=== PATIENT | male | born 1930 | race Caucasian/White ===

== ENCOUNTER 2016-09-29 12:02 | Day surgery (SDC) | payer OTHER ==
[2016-09-29] MEDS ORDERED: BACITRACIN IRRIGATION/NS 50,000 UNITS/1,000 ML BTL IRR ONE (12:06)
[2016-09-29] MEDS ORDERED: NS 1,000 ML IV ONE (12:06)
[2016-09-29] MEDS ORDERED: diphenhydrAMINE 25 MG CAP PO ONE (12:06)
[2016-09-29] MEDS ORDERED: ceFAZolin 2 GM/DEXTROSE 100 ML IV ONE (12:06)
[2016-09-29] MEDS ORDERED: DIAZEPAM 5 MG TAB PO ONE (12:06)
--- NOTE | 2016-09-29 12:25 | CPEKG ---
Heart Rate: 60 RR Interval: 1000 P-R Interval: 240 QRSD Interval: 148 QT Interval: 460 QTC Interval: 460 P [place]: 0 QRS [place]: 85 T Wave [place]: -31 EKG Severity - ABNORMAL ECG - EKG Impression: A paced V sensed EKG Impression: RBBB Electronically Signed By: Khang Joseph 29-Sep-2016 13:40:45
[2016-09-29] MEDS ORDERED: fentaNYL 100 MCG/2 ML INJ ONE (12:38)
[2016-09-29] MEDS ORDERED: BUPIVACAINE 0.5% 30 ML SDV ONE (12:38)
[2016-09-29] MEDS ORDERED: LIDOCAINE 1% 30 ML SDV ONE (12:38)
[2016-09-29] MEDS ORDERED: LIDO/EPI 1% **for epidural** 30 ML SDV ONE (12:38)
[2016-09-29] MEDS ORDERED: MIDAZOLAM 2 MG/2 ML VIAL ONE (12:38)
[2016-09-29 12:56] LABS: INR 1.05 (0.83-1.16); PROTIME(PATIENT) 13.6 SEC (12.0-15.0)
[2016-09-29 13:38] LABS: ANION GAP 17 mEq/L (8-16); CALCIUM 9.6 mg/dL (8.5-10.4); CARBON DIOXIDE 21 mEq/l (22-31); CHLORIDE 96 mEq/L (97-110); CREATININE 7.3 mg/dL (0.7-1.3); GLOMERULAR FILTRATION RATE 7; GLUCOSE 80 mg/dL (70-100); POTASSIUM 5.6 mEq/L (3.5-5.2); SODIUM 134 mEq/L (134-144)
--- NOTE | 2016-09-29 14:36 | EPPROC ---
Electrophysiology Procedure Note: PROCEDURE: Dual-chamber pacemaker replacement. DATE OF PROCEDURE: 09/29/2016 COMPLICATIONS: None BILLET WORKER: Pino Chavis MD EXPLANTED DEVICE: Biotronik Ryan HERRERA, serial # [id number]. IMPLANTED DEVICE: Etsarah Robert CHAPPELL, serial # [id number]. LEADS: The right atrial lead is a [employer] 1882TC/46, serial # [id number]. The right ventricular lead is a Biotronik Setrox S 53, serial # [id number]. INDICATION AND APPROPRIATE USE CRITERIA: The device is being replaced for BEBETO alerts. 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 PROCEDURE IN DETAIL: After informed consent was obtained and n.p.o. status was confirmed, the region of the left subclavicular fossa was cleaned, prepped and draped in a sterile fashion. Approximately 20 mL of 1% lidocaine was utilized for local anesthesia. The skin was sharply incised with a #10 blade. Electrocautery and local pressure were used for hemostasis. Sharp and blunt dissection was used to access the pacemaker pocket overlying the pectoralis major fascia. The pocket was thoroughly flushed and checked for bleeding. Hemostasis was established and the old device was removed from the pocket. The atrial and ventricular lead set screws were loosened. The atrial lead serial number was checked and placed in the upper pole lead housing of the new pulse generator and set screw firmly applied. The procedure was repeated for the RV lead. Ventricular lead threshold was tested and found to be 0.8 V at 0.4 ms width. R-wave amplitude was measured at 7.1 mV. Lead impedance was 456 Ohms. Atrial lead threshold was tested at 0.6 V at 0.4 ms width. P-wave amplitude was 4.9 mV, lead impedance was 354 Ohms. The device was placed in the pocket and sutured in place with #0 Ethibond. The skin was closed with a 3-layered 3-0 Vicryl, 2-0 Vicryl and 4-0 Monocryl repair with excellent wound edge opposition and hemostasis documented. The patient returned to the post cath recovery unit in good and stable condition where a stat postoperative EKG will be obtained. FINAL IMPRESSION: Successful elective pulse generator replacement without immediate complication.
== END 2016-09-29 17:13 | disposition home or self-care (01) ==
LOC: FCATH 12:02
PROVIDERS: ATTEND Internal Medicine Cardiovascular Disease
PROC: 0JH636Z Insertion of Pacemaker, Dual Chamber into Chest Subcutaneous Tissue and Fascia, Percutaneous Approach (ICD-10-PCS; principal; 2016-09-29)
PROC: 0JPT3PZ Removal of Cardiac Rhythm Related Device from Trunk Subcutaneous Tissue and Fascia, Percutaneous Approach (ICD-10-PCS; principal; 2016-09-29)
DX: Z45.010 Encounter for checking and testing of cardiac pacemaker pulse generator [battery] (principal); I44.1 Atrioventricular block, second degree; I25.10 Atherosclerotic heart disease of native coronary artery without angina pectoris; I12.0 Hypertensive chronic kidney disease with stage 5 chronic kidney disease or end stage renal disease; N18.6 End stage renal disease
CPT/HCPCS: C1785; J0690; J2250; J3010

== ENCOUNTER 2016-09-30 13:14 | Emergency (ER) | payer OTHER ==
[2016-09-30] MEDS ORDERED: NS 1,000 ML IV ONE (13:23)
[2016-09-30 13:26] VITALS: RESP 16; O2SAT 98
[2016-09-30 13:30] LABS: % IMMATURE GRANULYOCYTES 0.4 % (0.0-1.1); ABSOLUTE IMMATURE GRANULOCYTES 0.02 10^3/uL (0.00-0.10); ADD DIFF? NO; ADD MORPH? NO; ADD SCAN? NO; ATYPICAL LYMPHOCYTE FLAG 10 (0-99); FRAGMENT RBC FLAG 0 (0-99); HEMOGLOBIN 12.2 g/dL (13.7-17.5); LEFT SHIFT FLG 0 (0-99); LIPEMIA HEMOLYSIS FLAG 90 (0-99); MEAN CELL HEMOGLOBIN 34.5 pg (27.9-34.1); MEAN CELL HEMOGLOBIN CONCENTR. 34.9 g/dL (32.4-36.7); MEAN CELL VOLUME 98.9 fL (81.5-99.8); MEAN PLATELET VOLUME 9.5 fL (8.7-11.7); PLATELET CLUMPS FLAG 10 (0-99); PLATELET COUNT 277 10^3/uL (150-400); RED BLOOD CELL COUNT 3.54 10^6/uL (4.40-6.38); RED CELL DISTRIBUTION WIDTH 13.9 % (11.5-15.2)
--- NOTE | 2016-09-30 13:32 | CPEKG ---
Heart Rate: 127 RR Interval: 472 QRSD Interval: 238 QT Interval: 368 QTC Interval: 536 P [place]: 0 QRS [place]: 89 T Wave [place]: -41 EKG Severity - ABNORMAL ECG - EKG Impression: A-V DUAL-PACED COMPLEXES W/ SOME INHIBITION Electronically Signed By: Hanane Barlow 30-Sep-2016 21:12:02
[2016-09-30 13:39] LABS: INR 1.07 (0.83-1.16); PROTIME(PATIENT) 13.8 SEC (12.0-15.0)
[2016-09-30 13:49] LABS: ANION GAP 15 mEq/L (8-16); CALCIUM 9.1 mg/dL (8.5-10.4); CARBON DIOXIDE 26 mEq/l (22-31); CHLORIDE 95 mEq/L (97-110); CREATININE 3.9 mg/dL (0.7-1.3); GLOMERULAR FILTRATION RATE 15; GLUCOSE 109 mg/dL (70-100); POTASSIUM 4.6 mEq/L (3.5-5.2); SODIUM 136 mEq/L (134-144)
[2016-09-30 14:00] LABS: TROPONIN I < 0.012 ng/mL (0-0.034)
--- NOTE | 2016-09-30 14:13 | EDPHY ---
H & P Time Seen by Provider: 09/30/16 13:22 HPI/ROS: HPI Possible near syncope. Low blood pressure after dialysis. 86-year-old male by ambulance from dialysis center. He has a history of end- stage renal disease. He also has a history of a recently placed pacemaker by his table tender Dr. Pino Chavis. Patient was finishing dialysis. He sat up. His blood pressure became low we do not have a measure from EMS. He attempted to get out of the dialysis chair and got caught on the dialysis tubing and stated that he tripped and fell forward. He states that although he was lightheaded he did not lose consciousness. He now has no complaints. He denies any associated chest pain, shortness of breath or palpitations. No focal loss of sensation or weakness. No other complaints. He is asking for discharge. ROS: Constitutional: No fever, no chills. As above. Eyes: No discharge. No changes in vision. ENT: No sore throat. No nasal congestion or rhinorrhea. Respiratory: No cough. No shortness of breath. Cardiac: No chest pain, no palpitations. Gastrointestinal: No abdominal pain, no vomiting, no diarrhea. Genitourinary: No hematuria. No dysuria or increased frequency with urination. Musculoskeletal: No back pain. No neck pain. No myalgias or arthralgias. Skin: No rashes. Neurological: No headache. No focal weakness or altered sensation. Past medical history: End-stage renal disease, dialysis Monday and Monday, pacemaker as above, left and right knee replacements, RFA fistula, hypertension. Social history: Lives with his . Here with his . Nonsmoker. No alcohol. Physical Exam: General Appearance: Alert, no distress. This patient is responding to questions appropriately and in full sentences. This patient appears well- hydrated and well-nourished. Eyes: Pupils equal and round no pallor or injection. No lid edema, erythema or injection. Respiratory: There are no retractions, lungs are clear to auscultation with good air movement bilaterally. Left upper chest wall pacemaker insertion site without evidence of infection, bleeding or other abnormalities. Cardiovascular: Regular rate and rhythm. No murmur appreciated. Gastrointestinal: Abdomen is soft and nontender, no masses, bowel sounds normal. No focal tenderness at McBurney's point. No Edmonds sign. Neurological: Motor sensory function is grossly intact. Cranial nerves are normal. Gait is normal. Skin: Warm and dry, no rashes. Musculoskeletal: Neck is supple and nontender. Extremities are symmetrical. All joints range without pain or impingement. Psychiatric: No agitation. No depression. Database: EKG: EKG time is 1:30 p.m.; EKG shows a shows a AV dual paced rhythm with appropriate discordance, with ventricular rates in the 70s. Interpreted by me. Imaging: Procedures: Emergency department course: IV placed from triage. Patient placed on a gambling monitor. EKG performed. Vital signs have been reviewed, patient is moderately hypertensive. Heart rate in triage 98. No tachypnea. On the monitor he has showed a paced rhythm with rate in the 70s. He denies any complaints at this time. He denies any associated palpitations, shortness of breath or chest discomfort with his event at dialysis. He reports that he has had these episodes in the past associated with dialysis and they have been worse with loss of consciousness/syncope. 2:15 p.m., his lab work has been reviewed and is reassuring. He is up and ambulatory. He has no lightheadedness or other complaints. He feels comfortable going home and is requesting discharge. I feel this is reasonable. Follow-up and return to emergency department precautions were thoroughly reviewed with him and his . All of their questions were answered. He was discharged from the emergency department in good condition. Differential Diagnosis: The differential diagnosis on this patient includes but is not limited to mechanical fall verses near syncope verses transient hypotension associated with dialysis. CVA, acute coronary syndrome, acute arrhythmia, pulmonary embolism, electrolyte abnormality, significant anemia unlikely. This represents a partial list of diagnoses considered. These considerations are based on history, physical exam, past history, reassessment and diagnostic testing. Smoking Status: Never smoked Constitutional: Initial Vital Signs Temperature (C) 36.5 C 09/30/16 13:14 Heart Rate 98 09/30/16 13:14 Respiratory Rate 16 09/30/16 13:14 Blood Pressure 140/75 H 09/30/16 13:14 O2 Sat (%) 98 09/30/16 13:14 O2 Delivery Mode Room Air Allergies/Adverse Reactions: No Allergies [NKA] Allergy (Verified 05/10/16 17:30) Home Medications: Medication Instructions Recorded Aspirin [Aspirin 81mg (OTC)] 81 mg PO DAILY 11/29/12 Levothyroxine [Synthroid 50 mcg 50 mcg PO DAILY 11/29/12 (RX)] Lisinopril [Zestril 40 mg (RX)] 40 mg PO BID 11/29/12 Polyethylene Glycol 3350 [Miralax 17 gm PO DAILY 11/29/12 17 gm (OTC)] Sevelamer Carbonate [Renvela] 3.2 gm PO TID 11/29/12 amLODIPine BESYLATE [Norvasc 5 mg 10 mg PO DAILY 11/29/12 (RX)] Atorvastatin Calcium 40 mg PO DAILY 06/09/16 Carvedilol 25 mg PO BID 06/09/16 Sensipar 30 mg PO 06/09/16 Zetia 10 mg PO DAILY 06/09/16 Dialyvite Tablet 1 tab PO DAILY 09/29/16 [place] 3 Fish Oil Softgel 1,380 mg PO BID 09/29/16 Vitamin D3 2,000 iunits PO BID 09/29/16 Medical Decision Making - Data Points Laboratory Results: Laboratory Results 09/30/16 13:10 09/30/16 13:10 09/30/16 13:10 WBC 4.47 10^3/uL (3.80-9.50) RBC 3.54 L 10^6/uL (4.40-6.38) Hgb 12.2 L g/dL (13.7-17.5) Hct 35.0 L % (40.0-51.0) MCV 98.9 fL (81.5-99.8) MCH 34.5 H pg (27.9-34.1) MCHC 34.9 g/dL (32.4-36.7) RDW 13.9 % (11.5-15.2) Plt Count 277 10^3/uL (150-400) MPV 9.5 fL (8.7-11.7) Neut % (Auto) 68.8 % (39.3-74.2) Lymph % (Auto) 11.6 L % (15.0-45.0) Lamb % (Auto) 14.5 H % (4.5-13.0) Eos % (Auto) 3.8 % (0.6-7.6) Baso % (Auto) 0.9 % (0.3-1.7) Nucleat RBC Rel Count 0.0 % (0.0-0.2) Absolute Neuts (auto) 3.07 10^3/uL (1.70-6.50) Absolute Lymphs (auto) 0.52 L 10^3/uL (1.00-3.00) Absolute Monos (auto) 0.65 10^3/uL (0.30-0.80) Absolute Eos (auto) 0.17 10^3/uL (0.03-0.40) Absolute Basos (auto) 0.04 10^3/uL (0.02-0.10) Absolute Nucleated RBC 0.00 10^3/uL (0-0.01) Immature Gran % 0.4 % (0.0-1.1) Immature Gran # 0.02 10^3/uL (0.00-0.10) PT 13.8 SEC (12.0-15.0) INR 1.07 (0.83-1.16) APTT 29.0 SEC (23.0-38.0) Sodium 136 mEq/L (134-144) Potassium 4.6 mEq/L (3.5-5.2) Chloride 95 L mEq/L (97-110) Carbon Dioxide 26 mEq/l (22-31) Anion Gap 15 mEq/L (8-16) BUN 19 mg/dL (7-23) Creatinine 3.9 H mg/dL (0.7-1.3) Estimated GFR 15 Glucose 109 H mg/dL (70-100) Calcium 9.1 mg/dL (8.5-10.4) Troponin I < 0.012 ng/mL (0-0.034) Medications Given: Discontinued Medications Sodium Chloride (Ns) 1,000 mls @ 0 mls/hr IV ONCE ONE PRN Reason: Wide Open Stop: 09/30/16 13:24 Last Admin: 09/30/16 14:00 Dose: Not Given Departure - Departure Disposition: Home, Routine, Self-Care Clinical Impression: Transient hypotension, Lightheaded, Status post dialysis Condition: Good Instructions: End Stage Kidney Disease (ED), Lightheadedness (ED) Additional Instructions: Read and follow provided instructions. Follow-up with primary care physician or table tender, Dr. Pino Chavis, on Monday for re-evaluation without fail Take your medication as prescribed only. No strenuous physical activity. Keep yourself hydrated. Return to the emergency department for lightheadedness, weakness, palpitations, chest pain or other serious concerns. Referrals: Patient,NotPresent [Primary Care Provider] - As per Instructions Pino Chavis MD [Medical Doctor] - As per Instructions
[2016-09-30 14:26] VITALS: BP 141/78; PULSE 97; TEMP 97.9
--- NOTE | 2016-09-30 14:56 | DX ---
Portable Chest, Single View 2:08 PM Indication: Chest Pain Comparison: Two-view chest dated December 24, 2012 Findings: A left anterior chest wall dual-lead pacemaker is unchanged in configuration. Heart size wi thin normal limit. No pneumothorax, edema, airspace consolidation or effusion. Minimal bibasilar line ar atelectasis is similar to December 2012. Impression: Clear lungs. No acute process.
== END 2016-09-30 14:37 | disposition home or self-care (01) ==
LOC: EDUNIT#
DX: R42 Dizziness and giddiness (principal); I95.9 Hypotension, unspecified; I12.0 Hypertensive chronic kidney disease with stage 5 chronic kidney disease or end stage renal disease; N18.6 End stage renal disease; Z99.2 Dependence on renal dialysis; Z79.82 Long term (current) use of aspirin

== ENCOUNTER → 2017-05-11 | Day surgery (SDC) | payer OTHER ==
[~2017-05-11] MED LIST: IOPAMIDOL (ISOVUE-300) 100 ML BTL ONE
== END | disposition home or self-care (01) ==
LOC: FIMAGING 07:40
PROVIDERS: ATTEND Internal Medicine Nephrology
PROC: B51MZZZ Fluoroscopy of Right Upper Extremity Veins (ICD-10-PCS; principal; 2017-05-11)
PROC: 03HY33Z Insertion of Infusion Device into Upper Artery, Percutaneous Approach (ICD-10-PCS; principal; 2017-05-11)
DX: T82.898A Other specified complication of vascular prosthetic devices, implants and grafts, initial encounter (principal); N18.6 End stage renal disease; I12.0 Hypertensive chronic kidney disease with stage 5 chronic kidney disease or end stage renal disease; I25.10 Atherosclerotic heart disease of native coronary artery without angina pectoris; E03.9 Hypothyroidism, unspecified; Z79.82 Long term (current) use of aspirin; Z85.46 Personal history of malignant neoplasm of prostate; Z95.0 Presence of cardiac pacemaker; Z99.2 Dependence on renal dialysis
CPT/HCPCS: J1644; Q9967

== ENCOUNTER 2017-07-15 14:59 | Observation (INO) | payer OTHER ==
--- NOTE | 2017-07-15 15:08 | EDPHY ---
H & P Time Seen by Provider: 07/15/17 15:06 HPI/ROS: CHIEF COMPLAINT: Abdominal pain HISTORY OF PRESENT ILLNESS: The patient presents to the ED with a 1 day history of generalized abdominal pain. The patient reports associated nausea but denies vomiting or diarrhea. The patient did take Imodium and Pepto-Bismol at 6 o'clock this morning. He continues to have ongoing generalized pain. The patient's past surgical history is significant for nephrectomy. The patient has a history of end-stage renal disease and is on Monday dialysis. The patient denies any complaints of fever, cough or congestion. REVIEW OF SYSTEMS: A comprehensive 10 point review of systems is otherwise negative aside from elements mentioned in the history of present illness. Source: Patient - Personal History Tetanus Vaccine Date: 2009 - Medical/Surgical History Hx Asthma: No Hx Chronic Respiratory Disease: No Hx Diabetes: No Hx Cardiac Disease: Yes Hx Renal Disease: Yes Hx Cirrhosis: No Hx Alcoholism: No Hx HIV/AIDS: No Hx Splenectomy or Spleen Trauma: No Other PMH: PMH/PSH: End Stage Renal Failure, pacemaker, left and right knee replacements, RFA fistula,HTN - Social History Smoking Status: Never smoked - Physical Exam Exam: General Appearance: Elderly male, no acute distress Eyes: Pupils equal and round no pallor or injection ENT, Mouth: Dry mucous membranes Respiratory: There are no retractions, lungs are clear to auscultation Cardiovascular: Regular rate and rhythm Gastrointestinal: Generalized abdominal tenderness, poorly localized, normal bowel sounds, no peritoneal signs Neurological: A&O, normal motor function, normal sensory exam, normal cranial nerves Skin: Warm and dry, no rashes Musculoskeletal: Neck is supple nontender Extremities: symmetrical, full range of motion Constitutional: Initial Vital Signs Temperature (C) 36.6 C 07/15/17 15:07 Heart Rate 86 07/15/17 15:07 Respiratory Rate 20 07/15/17 15:07 Blood Pressure 134/86 H 07/15/17 15:07 O2 Sat (%) 94 07/15/17 15:07 O2 Delivery Mode Room Air Allergies/Adverse Reactions: No Allergies [NKA] Allergy (Verified 07/15/17 15:03) Home Medications: Medication Instructions Recorded ASPIRIN 07/15/17 Coreg 07/15/17 LEVOTHYROXINE SODIUM 07/15/17 Lisinopril 07/15/17 RENVELA 07/15/17 Zetia 07/15/17 amLODIPine BESYLATE 07/15/17 Medical Decision Making - Diagnostics Imaging Results: Imaging Impressions Abdomen CT 07/15/17 16:15 Impression: 1. Cholelithiasis with trace pericholecystic stranding, which could be related to a small volume of ascites, without gallbladder wall thickening. Findings are equivocal for cholecystitis. 2. Nodularity in the right nephrectomy bed of uncertain clinical significance. If there is a history of right renal malignancy, follow-up would be recommended. 3. Severely atrophic left kidney with multiple hypodensities that cannot be definitely characterized as cysts and could represent proteinaceous or hemorrhagic cysts. Ultrasound could be performed for further evaluation. 4. Diverticulosis without evidence of diverticulitis. 5. Additional findings, as above. Findings discussed with Julio Cesar Brooks MD on July 15, 2017 at 1731 hours. ED Course/Re-evaluation: The patient presents to the ED with abdominal pain and nausea. The patient had his regular dialysis yesterday. The patient appears to be significantly dehydrated with dry mucous membranes and poor skin turgor. Patient has generalized abdominal tenderness which is poorly localized. The patient was taken for CT scan of the abdomen pelvis which demonstrates no evidence of appendicitis or obstruction. Patient was noted to have cholelithiasis. A right upper quadrant ultrasound demonstrates no evidence of cholecystitis. Patient was noted to be mildly hyperkalemic with a potassium of 6 upon arrival. The patient's potassium was rechecked at 6:30 p.m. and found to be 5.5. The patient was reexamined by myself after receiving IV fluids he continues to have ongoing nausea. He has not had vomiting. I find his abdominal examination to be reassuring without focal tenderness in the right upper quadrant. Given the patient's history of renal failure and ongoing symptoms I am certainly concerned about his volume status. He does have mild hyperkalemia at this point time. He has no evidence of fluid overload or significant hypertension. I do feel the patient should be admitted to the hospital for observation this evening. Consultation was made with Dr. Huertas who is covering for the patients PCP who will admit the patient. Dr. Ji from nephrology has been notified of the patient's admission at this point time I do not see an indication for emergent dialysis. I will defer to the hospitalist to contact Dr. Ji if dialysis becomes indicated. Differential Diagnosis: Differential diagnosis considered includes cholecystitis, appendicitis, perforation, obstruction, dehydration, metabolic abnormality - Data Points Laboratory Results: Laboratory Results 07/15/17 16:20 07/15/17 16:20 07/15/17 07/15/17 07/15/17 18:40 16:20 16:20 WBC 7.23 10^3/uL 10^3/uL (3.80-9.50) RBC 3.78 10^6/uL L 10^6/uL (4.40-6.38) Hgb 13.3 g/dL L g/dL (13.7-17.5) POC Hgb 13.3 gm/dL L gm/dL (13.7-17.5) Hct 37.8 % L % (40.0-51.0) POC Hct 39 % L % (40-51) MCV 100.0 fL H fL (81.5-99.8) MCH 35.2 pg H pg (27.9-34.1) MCHC 35.2 g/dL g/dL (32.4-36.7) RDW 13.2 % % (11.5-15.2) Plt Count 250 10^3/uL 10^3/uL (150-400) MPV 9.3 fL fL (8.7-11.7) Neut % (Auto) 79.5 % H % (39.3-74.2) Lymph % (Auto) 7.2 % L % (15.0-45.0) [place] % (Auto) 10.8 % % (4.5-13.0) Eos % (Auto) 1.5 % % (0.6-7.6) Baso % (Auto) 0.6 % % (0.3-1.7) Nucleat RBC Rel Count 0.0 % % (0.0-0.2) Absolute Neuts (auto) 5.75 10^3/uL 10^3/uL (1.70-6.50) Absolute Lymphs (auto) 0.52 10^3/uL L 10^3/uL (1.00-3.00) Absolute Monos (auto) 0.78 10^3/uL 10^3/uL (0.30-0.80) Absolute Eos (auto) 0.11 10^3/uL 10^3/uL (0.03-0.40) Absolute Basos (auto) 0.04 10^3/uL 10^3/uL (0.02-0.10) Absolute Nucleated RBC 0.00 10^3/uL 10^3/uL (0-0.01) Immature Gran % 0.4 % % (0.0-1.1) Immature Gran # 0.03 10^3/uL 10^3/uL (0.00-0.10) POC Sodium 133 mEq/L L mEq/L (134-144) Sodium 136 mEq/L mEq/L (134-144) POC Potassium 5.5 mEq/L H mEq/L (3.3-5.0) Potassium 6.0 mEq/L H mEq/L (3.5-5.2) POC Chloride 100 mEq/L mEq/L (97-110) Chloride 95 mEq/L L mEq/L (97-110) Carbon Dioxide 23 mEq/l mEq/l (22-31) Anion Gap 18 mEq/L H mEq/L (8-16) POC BUN 43 mg/dL H mg/dL (7-23) BUN 47 mg/dL H mg/dL (7-23) Creatinine 8.7 mg/dL H* mg/dL (0.7-1.3) POC Creatinine 9.1 mg/dL H* mg/dL (0.7-1.3) Estimated GFR 6 Glucose 96 mg/dL mg/dL (70-100) POC Glucose 81 mg/dL mg/dL (70-100) Calcium 10.0 mg/dL mg/dL (8.5-10.4) Total Bilirubin 0.9 mg/dL mg/dL (0.1-1.4) Conjugated Bilirubin 0.4 mg/dL mg/dL (0.0-0.5) Unconjugated Bilirubin 0.5 mg/dL mg/dL (0.0-1.1) AST 27 IU/L IU/L (17-59) ALT 34 IU/L IU/L (21-72) Alkaline Phosphatase 183 IU/L H IU/L (38-126) Total Protein 7.7 g/dL g/dL (6.3-8.2) Albumin 4.2 g/dL g/dL (3.5-5.0) Lipase 273 IU/L IU/L (23-300) Medications Given: Discontinued Medications Sodium Chloride (Ns) 1,000 mls @ 0 mls/hr IV EDNOW ONE; Wide Open PRN Reason: Protocol Stop: 07/15/17 15:29 Last Admin: 07/15/17 16:00 Dose: 1,000 mls Point of Care Test Results: 07/15/17 18:40 POC Sodium 133 L POC Potassium 5.5 H POC Chloride 100 POC BUN 43 H POC Creatinine 9.1 H* POC Glucose 81 Departure - Departure Disposition: [facility] Inpatient Acute Clinical Impression: Abdominal pain, Hyperkalemia, Chronic renal failure Condition: Fair Referrals: Juan Ibrahim PA [Primary Care Provider] - As per Instructions
[2017-07-15] MEDS ORDERED: NS 1,000 ML IV ONE (15:28)
[2017-07-15] MEDS ORDERED: IOPAMIDOL (ISOVUE-300) 100 ML BTL ONE (16:19)
[2017-07-15 16:32] LABS: % IMMATURE GRANULYOCYTES 0.4 % (0.0-1.1); ABSOLUTE IMMATURE GRANULOCYTES 0.03 10^3/uL (0.00-0.10); ADD DIFF? NO; ADD MORPH? NO; ADD SCAN? NO; ATYPICAL LYMPHOCYTE FLAG 0 (0-99); FRAGMENT RBC FLAG 0 (0-99); HEMATOCRIT 37.8 % (40.0-51.0); HEMOGLOBIN 13.3 g/dL (13.7-17.5); LEFT SHIFT FLG 0 (0-99); LIPEMIA HEMOLYSIS FLAG 90 (0-99); MEAN CELL HEMOGLOBIN 35.2 pg (27.9-34.1); MEAN CELL HEMOGLOBIN CONCENTR. 35.2 g/dL (32.4-36.7); MEAN PLATELET VOLUME 9.3 fL (8.7-11.7); PLATELET CLUMPS FLAG 0 (0-99); PLATELET COUNT 250 10^3/uL (150-400); RED BLOOD CELL COUNT 3.78 10^6/uL (4.40-6.38); RED CELL DISTRIBUTION WIDTH 13.2 % (11.5-15.2)
[2017-07-15 16:44] LABS: ALANINE AMINOTRANSFERASE 34 IU/L (21-72); ALBUMIN 4.2 g/dL (3.5-5.0); ALKALINE PHOSPHATASE 183 IU/L (38-126); ANION GAP 18 mEq/L (8-16); ASPARTATE AMINOTRANSFERASE 27 IU/L (17-59); BILIRUBIN,TOTAL 0.9 mg/dL (0.1-1.4); BILIRUBIN-CONJUGATED 0.4 mg/dL (0.0-0.5); BILIRUBIN-UNCONJUGATED 0.5 mg/dL (0.0-1.1); CARBON DIOXIDE 23 mEq/l (22-31); CHLORIDE 95 mEq/L (97-110); GLOMERULAR FILTRATION RATE 6; GLUCOSE 96 mg/dL (70-100); SODIUM 136 mEq/L (134-144); TOTAL PROTEIN 7.7 g/dL (6.3-8.2)
[2017-07-15 17:02] LABS: CREATININE 8.7 mg/dL (0.7-1.3)
--- NOTE | 2017-07-15 19:19 | CPEKG ---
Heart Rate: 72 RR Interval: 833 P-R Interval: 208 QRSD Interval: 148 QT Interval: 420 QTC Interval: 460 P [place]: 22 QRS [place]: 36 T Wave [place]: -42 EKG Severity - ABNORMAL ECG - EKG Impression: ATRIAL-PACED COMPLEXES EKG Impression: RIGHT BUNDLE BRANCH BLOCK Electronically Signed By: Julio Cesar Brooks 15-Jul-2017 19:20:43
--- NOTE | 2017-07-15 22:05 | SOAPPROG ---
SOAP Progress Note Assessment/Plan: Assessment: Plan: 07/15/17 22:09 1. Abdominal pain: etiology not clear from CT scan, US. Possibly a mix of mild gastroenteritis and constipation. No suggestion obstruction, cholecystitis, diverticulitis. He is feeling better, and is hungry. Would like to try eating. 2. ESRD, on dialysis. Uneventful recent dialysis yesterday. 3. Hyperkalemia. F/u K+ better. Etiology unclear given recent dialysis. Dr. Ji aware. Will repeat BMP tonight to confirm it is trending down. 4. Hypertension: BP up tonight. Pt states it is usually up in the evening. On lisinopril, carvedilol, amlodipine, so will continue these 5. Hyperlipidemia: on atorvastatin, Zetia. Will continue. 6. CAD, asymptomatic 7. Hypothyroidism, on levothyroxine. 8. Renal carcinoma, s/p R nephrectomy, with nodularity noted in nephrectomy bed. Will have Dr. Ji look at CT scan. 07/15/17 22:11 Subjective: 86 yo male with hx ESRD, on dialysis MWF, was feeling well until this morning. He had dialysis yesterday and felt it went well. Went to bed around 10. Woke around 6 am with significant, diffuse abdominal pain. [place] nauseated and like he might vomit or have diarrhea but didn't. He subsequently had several small BMs. No blood in the stool. He felt dehydrated, drank some tea and took his morning meds. He continued to have discomfort, and it didn't seem right so he came in for further evaluation. CT scan showed cholelithiasis with possible cholecystitis, an atrophic L kidney, absent R kidney following nephrectomy for renal carcinoma but nodularity in nephrectomy bed of unclear significance, diverticulosis, proximal constipation. RUQ US done to r/o cholecystitis, and was negative. EKG showed a paced rhythm. Initial CBC showed mild anemia, normal WBC. CMP remarkable for K+ 6.0, BUN 47, Cr 8.7. He was given 1L NS in the ER. F/ u K+ 5.5. His pain is better, but not resolved, so he is being admitted for further observation. Objective: Vital Signs Temp Pulse Resp BP Pulse Ox 36.8 C 73 15 163/72 H 94 07/15/17 20:45 07/15/17 20:45 07/15/17 20:45 07/15/17 20:45 07/15/17 20:45 07/14/17 07/15/17 07/16/17 05:59 05:59 05:59 Intake Total 1000 Balance 1000 General: well-appearing, looks comfortable, NAD. Awake, alert, pleasant. HEENT: NC/AT. PERRL, EOMI Neck: supple, no adenopathy Lungs: clear bilaterally Cardiovascular: RRR without murmur Abdomen: +bowel sounds, soft, non-distended. Mild diffuse discomfort with deeper palpation. No hepatosplenomegaly, masses noted Extremities: mild LE edema. Dialysis shunt noted R wrist Musculoskeletal: no joint swelling, erythema Neurologic: alert, oriented, moving all extremities Psychiatric: pleasant, cooperative. ICD10 Worksheet Patient Problems: Problems Problem Status Onset Abdominal pain Acute Chronic renal failure Acute Hyperkalemia Acute
[2017-07-15] MEDS ORDERED: LACTULOSE 20 GM/30 ML UDCUP PO PRN (22:18)
[2017-07-15] MEDS ORDERED: ONDANSETRON 4 MG/2 ML VIAL IVP PRN (22:18)
[2017-07-15] MEDS ORDERED: POLYETHYLENE GLYCOL 3350 17 GM PKT PO PRN (22:18)
[2017-07-15] MEDS ORDERED: BISACODYL 10 MG SUPP PR PRN (22:18)
[2017-07-15] MEDS ORDERED: ONDANSETRON DISINTEGRATING 4 MG TAB PO PRN (22:18)
[2017-07-15] MEDS ORDERED: ACETAMINOPHEN 325 MG TAB PO PRN (22:18)
[2017-07-15] MEDS ORDERED: MAGNESIUM HYDROXIDE 30 ML UDCUP PO PRN (22:18)
[2017-07-15] MEDS ORDERED: TRIAMCINOLONE 0.1% 15 GM CRTUBE TP PRN (22:24)
[2017-07-15] MEDS ORDERED: CARBOXYMETHYLCELLULOSE 1% 0.4 ML DROPERETTE EACHEYE PRN (22:24)
[2017-07-15 23:09] LABS: ANION GAP 15 mEq/L (8-16); CALCIUM 9.3 mg/dL (8.5-10.4); CARBON DIOXIDE 22 mEq/l (22-31); CHLORIDE 98 mEq/L (97-110); GLOMERULAR FILTRATION RATE 6; GLUCOSE 77 mg/dL (70-100); POTASSIUM 5.2 mEq/L (3.5-5.2); SODIUM 135 mEq/L (134-144)
[2017-07-15 23:13] LABS: CREATININE 8.9 mg/dL (0.7-1.3)
--- NOTE | 2017-07-15 23:19 | GHP ---
[f rep st] HISTORY AND PHYSICAL DATE OF ADMISSION: 07/15/2017 HISTORY OF PRESENT ILLNESS: The patient is an 86-year-old male with a history of end-stage renal disease, on dialysis Monday, Monday, and Monday, who was feeling well until this morning. He had dialysis yesterday and felt well last night. He went to bed around 10. He woke up this morning around 6 a.m. with significant diffuse abdominal pain. He felt nauseated and like he might vomit or have diarrhea, but did not. He subsequently had several small bowel movements. He did not have any blood in the stool. He felt dehydrated, drank some tea and took his morning medications. He continued to have discomfort and it did not seem right to him, so he came into the emergency department for further evaluation. CT scan showed cholelithiasis with possible cholecystitis, an atrophic left kidney and absent right kidney following a nephrectomy for renal carcinoma but with nodularity in the nephrectomy bed of unclear significance, diverticulosis, and proximal constipation. A right upper quadrant ultrasound was done to rule out cholecystitis and was negative. His EKG showed a paced rhythm. Initial CBC showed mild anemia and a normal white blood cell count. CMP was remarkable for a potassium of 6, BUN 47, creatinine 8.7. He was given 1 L of normal saline in the emergency department. The followup potassium was 5.5. At this point, his pain is better but not resolved and he is being admitted for further evaluation. PAST MEDICAL HISTORY: Significant for colon polyps, end stage renal disease on hemodialysis, Dupuytren's contractures, elevated PTH, gout, hyperlipidemia, hypertension, pulmonary embolism following extensive travel, progressive coronary atherosclerosis on heart scan, prostate carcinoma status post seed implants, pacemaker placement in 2009, renal carcinoma, thyroid nodule. MEDICATIONS: Lisinopril 40 mg daily, carvedilol 25 mg twice daily, [place] essentials with vitamin D, levothyroxine sodium 50 mg daily, Renvela 800 mg 4 tablets with meals 3 times daily, amlodipine 10 mg daily, aspirin 81 mg daily, MiraLAX, Atorvastatin 40 mg daily, Zetia 10 mg daily, Sensipar 30 mg 1 tablet with food once a day on Tuesdays and , Dialyvite once daily, triamcinolone cream. ALLERGIES: None. PAST SURGICAL HISTORY: Right nephrectomy, bilateral knee replacements. FAMILY HISTORY: His father at 86 from hypertension. His mother at 55 from a cranial aneurysm, hypertension and obesity. He has a sister with redundant kidneys and history of polio. SOCIAL HISTORY: He is . He is retired. He is a nonsmoker. REVIEW OF SYSTEMS: GENERAL: No fever, chills, fatigue. HEENT: No sore throat or rhinitis, head congestion. RESPIRATORY: No shortness of breath, cough, wheezing. CARDIOVASCULAR: No chest pain, pressure, shortness of breath. GI: Nausea as noted above without vomiting. No diarrhea but did have loose stools. No blood in stool. Some decreased appetite, diffuse abdominal pain as noted. GENITOURINARY: The patient does not urinate. MUSCULOSKELETAL: No joint aches or pains, though did feel some mild muscle cramping earlier this morning. No problems with walking or gait. NEUROLOGIC: No headache. No confusion. No weakness. No numbness or tingling. PSYCHIATRIC: Again, no confusion, pleasant. PHYSICAL EXAMINATION: VITAL SIGNS: Temperature 36.8, pulse 73, respirations 15 , blood pressure 163/72, O2 saturation 94% on room air. GENERAL: He is well appearing, looks comfortable, in no acute distress. Awake , alert, pleasant. HEENT: Normocephalic, atraumatic. Pupils equal, round, reactive to light. Extraocular movements are intact. NECK: Supple without adenopathy. LUNGS: Clear bilaterally. CARDIOVASCULAR: Regular rate and rhythm without murmur. ABDOMEN: Soft with normal bowel sounds. Nondistended. Mild diffuse discomfort with deeper palpation. No hepatosplenomegaly or masses noted. EXTREMITIES: Mild lower extremity edema. Dialysis shunt noted right wrist. MUSCULOSKELETAL: No joint swelling or erythema. NEUROLOGIC: Alert, oriented, moving all extremities. PSYCHIATRIC: Pleasant, alert, cooperative. ASSESSMENT AND PLAN: 1. Abdominal pain. The etiology is not clear from CT scan or ultrasound, possibly mix of mild gastroenteritis and constipation. No suggestion obstruction, cholecystitis, diverticulitis. He is feeling better and is hungry and would like to try eating. 2. End-stage renal disease on dialysis. Uneventful recent dialysis yesterday. 3. Hyperkalemia. Followup potassium is better. Etiology unclear given recent dialysis. Dr. Ji is aware. Will repeat BMP tonight to confirm it is trending down. 4. Hypertension. Blood pressure up tonight. Patient states it is usually up in the evening. He is on lisinopril, carvedilol and amlodipine, so we will continue these. 5. Hyperlipidemia. On atorvastatin and Zetia. Will continue. 6. Coronary artery disease. Asymptomatic though somewhat progressive. 7. Hypothyroidism. On levothyroxine replacement. 8. Renal carcinoma status post right nephrectomy with nodularity noted in the rectum bed. Will have Dr. Ji look at the CT scan. 9. DVT prophylaxis: compression stockings DISPOSITION: 1. Patient is admitted to observation. If he is feeling better in the morning , expect that he will be able to be discharged with followup as necessary. /[id number]/MODL MTDD
[2017-07-16 05:42] LABS: ANION GAP 18 mEq/L (8-16); CALCIUM 9.3 mg/dL (8.5-10.4); CARBON DIOXIDE 19 mEq/l (22-31); CHLORIDE 97 mEq/L (97-110); GLOMERULAR FILTRATION RATE 5; GLUCOSE 88 mg/dL (70-100); POTASSIUM 5.2 mEq/L (3.5-5.2); SODIUM 134 mEq/L (134-144)
[2017-07-16 05:47] LABS: CREATININE 9.8 mg/dL (0.7-1.3)
[2017-07-16] MEDS ORDERED: LEVOTHYROXINE 50 MCG TAB PO SCH (06:00)
[2017-07-16] MEDS ORDERED: SEVELAMER HCL 800 MG TAB PO SCH (08:00)
[2017-07-16] MEDS ORDERED: EPA PO SCH (08:00)
[2017-07-16] MEDS ORDERED: FISH OIL PO SCH (08:00)
[2017-07-16] MEDS ORDERED: OMEGA PO SCH (08:00)
[2017-07-16] MEDS ORDERED: CARVEDILOL 25 MG TAB PO SCH (08:00)
[2017-07-16] MEDS ORDERED: DHA PO SCH (08:00)
[2017-07-16] MEDS ORDERED: D3 PO SCH (08:00)
[2017-07-16 08:01] VITALS: BP 141/72; PULSE 70; RESP 14; TEMP 98.3; O2SAT 95
--- NOTE | 2017-07-16 08:25 | SOAPPROG ---
JONATHAN Progress Note Assessment/Plan: Assessment: I know yKaw well. I reviewed his history with Dr. Brooks in the ER last pm, and also discussed with Dr. Huertas last evening. Kyaw has had a limited episode of gastrointestinal symptoms. He appears completely recovered this am. He has not had any ill contacts, nor has anyone else he has recently dined with become ill. His CT scan was not immediately remarkable for an explanation. Today, his abdominal pain is gone. He does not have a Deon's sign. His K level is better. I believe he can be dc'd this am. -He knows to restrict his potassium -He will follow up on dialysis in the am. -I cannot really comment on the nodularity in the nephrectomy bed in a sophisticated manner. This should be reviewed in a follow up with urology. -If there are further concerns re gall bladder pathology, he could get a HIDA scan or have follow with with Dr. Farley. Thanks Plan: 07/16/17 08:21 Subjective: Looks great, and is in good spirits. Denies any nausea, diarrhea, or abd pain Objective: Vital Signs Temp Pulse Resp BP Pulse Ox 36.8 C 70 14 141/72 H 95 07/16/17 07:57 07/16/17 07:57 07/16/17 07:57 07/16/17 07:57 07/16/17 07:57 Laboratory Results 07/16/17 04:28 07/15/17 07/16/17 07/17/17 05:59 05:59 05:59 Intake Total 1150 Balance 1150 Physical Exam - Physical Exam General Appearance: no apparent distress EENT: normal ENT inspection Respiratory: lungs clear Cardiac/Chest: regular rate, rhythm Abdomen: non-tender, soft, other (negative deon's) Skin: normal color Extremities: normal inspection (fistual with good bruit) Neuro/Psych: normal mood/affect, oriented x 3 ICD10 Worksheet Patient Problems: Problems Problem Status Onset Abdominal pain Acute Chronic renal failure Acute Hyperkalemia Acute
[2017-07-16] MEDS ORDERED: SENNOSIDES/DOCUSATE SODIUM TAB PO SCH (09:00)
[2017-07-16] MEDS ORDERED: POLYETHYLENE GLYCOL 3350 17 GM PKT PO SCH (09:00)
[2017-07-16] MEDS ORDERED: ASPIRIN EC 81 MG TAB PO SCH (09:00)
[2017-07-16] MEDS: EZETIMIBE 10 MG TAB PO SCH (09:18)
--- NOTE | 2017-07-16 11:39 | SOAPPROG ---
SOAP Progress Note Assessment/Plan: Assessment: Plan: 07/15/17 22:09 1. Abdominal pain: etiology not clear from CT scan, US. Possibly a mix of mild gastroenteritis and constipation. No suggestion obstruction, cholecystitis, diverticulitis. He is feeling better, and is hungry. Would like to try eating. 2. ESRD, on dialysis. Uneventful recent dialysis yesterday. 3. Hyperkalemia. F/u K+ better. Etiology unclear given recent dialysis. Dr. Ji aware. Will repeat BMP tonight to confirm it is trending down. 4. Hypertension: BP up tonight. Pt states it is usually up in the evening. On lisinopril, carvedilol, amlodipine, so will continue these 5. Hyperlipidemia: on atorvastatin, Zetia. Will continue. 6. CAD, asymptomatic 7. Hypothyroidism, on levothyroxine. 8. Renal carcinoma, s/p R nephrectomy, with nodularity noted in nephrectomy bed. Will have Dr. Ji look at CT scan. 07/15/17 22:11 07/16/17 11:39 Abdominal pain: resolved. Probably a mild gastroenteritis. ESRD: will have dialysis tomorrow Hyperkalemia: resolved. Renal carcinoma with nodularity in nephrectomy bed: appreciate Dr. Ji's input. Pt doesn't have local urologist. I will talk with his PCP tomorrow, and we will address any needed f/u. Cholelithiasis: pt asymptomatic. Alkaline phosphatase elevated initially, other LFTs normal. Will consider HIDA scan as outpatient. 07/16/17 11:42 07/16/17 11:43 Subjective: Feels great this morning. Ate a sandwich around 3am and all his abdominal pain resolved. Objective: Vital Signs Temp Pulse Resp BP Pulse Ox 36.8 C 70 14 141/72 H 95 07/16/17 07:57 07/16/17 07:57 07/16/17 07:57 07/16/17 07:57 07/16/17 07:57 Laboratory Results 07/16/17 04:28 07/15/17 07/16/17 07/17/17 05:59 05:59 05:59 Intake Total 1150 Balance 1150 General: awake, alert, NAD Neck: no masses, adenopathy Lungs: clear Cardiovascular: RRR without murmur Abdomen: +bowel sounds, soft, NT. Extremities: no edema ICD10 Worksheet Patient Problems: Problems Problem Status Onset Abdominal pain Acute Chronic renal failure Acute Hyperkalemia Acute
--- NOTE | 2017-07-16 12:10 | GDS ---
[f rep st] DISCHARGE SUMMARY DISCHARGE DIAGNOSES: 1. Abdominal pain, most likely due to mild gastroenteritis. 2. End-stage renal disease. 3. Hyperkalemia. 4. Hypertension. 5. Hyperlipidemia. 6. Coronary artery disease. 7. Hypothyroidism. 8. Renal carcinoma status post right nephrectomy with nodularity noted in nephrectomy bed. 9. Cholelithiasis. HOSPITAL COURSE: The patient is an 86-year-old male with a history of end-stage renal disease, who o n the day of admission developed fairly significant diffuse abdominal pain at home. He felt nauseate d but did not vomit. He had some loose stool but no diarrhea. Because he did not feel that this was a typical pain for him, he came into the emergency department for further evaluation. CT scan showe d cholelithiasis, but ultrasound did not confirm cholecystitis. There were no obstruction and no shantelle dence of infection. He had some diverticulosis without diverticulitis and no clear etiology on CT sc an was revealed. Over the course of his hospital stay, his pain diminished and as of this morning, i t is completely resolved. He was also noted initially to have a mild hyperkalemia with a potassium o f 6. This gradually came down to 5.2 later last night and again this morning. He is feeling very we ll this morning and so the plan is to discharge him. I did discuss the nodularity with him noted in his right nephrectomy bed. He does not have a local urologist and so I will talk with his primary ca re provider and will arrange for followup for this. He also has cholelithiasis, although he is curre ntly asymptomatic. His alkaline phosphatase was initially elevated. Other LFTs were normal. We wilda l consider a HIDA scan as an outpatient. He is to be discharged home on his regular med medications. He will follow up with Dr. Ji and have dialysis tomorrow, and then will follow up with Juan Ibrahim in the office. /[id number]/MODL
--- NOTE | 2017-07-16 14:47 | ASMTCMCOM ---
CM Note CM Note Notes: 86 year old male admitted for Abd pain. He has a hx of End stage renal dis, Hyperkalemia, HTN, HLD, CAD, Hypothyroid, Renal CA S/P R nephrectomy. In his work up a nodularity was noted in nephrectomy bed, Cholelithiasis. Patient will be discharged. He has dialysis MWF, he will follow up with Gaston Ji and Patrice. No other discharge needs. Date Signed: 07/16/2017 02:46 PM Electronically Signed By:Bria Mckenzie LCSW
--- NOTE | 2017-07-16 14:50 | ASDISCHSUM ---
Discharge Information Plan Status:Home with No Needs Medically Cleared to Leave:07/15/2017 Discharge Date:07/16/2017 12:47 PM CM D/C Disposition:Home, Routine, Self-Care ADT D/C Disposition:Home, Routine, Self-Care Projected Discharge Date:07/16/2017 12:00 AM Transportation at D/C:Family Discharge Delay Reason: Follow-Up Date:07/16/2017 12:00 AM Discharge Slot: Final Diagnosis:Abd pain, End stage renal dis, Hyperkalemia, HTN, HLD Placement Information Patient Contact Information Contact Name:DANIEL Relationship: Address:[address] [place] [address] City:[facility] Phone: [facility]/Zip Code:[place] [address] Email: Financial Information Financial Class:Medicare Advantage Plans Primary Plan Desc:[place] MEDICARE ADV Primary Plan Number:[id number] Secondary Plan Desc: Secondary Plan Number: Assessment Information LACE LACE Acuity / Level of Care Answers: No. Comorbidities - select Answers: Moderate or severe liver all that apply disease or renal disease Emergency dept visits in Answers: 1 last 6 months Score: 5 Date Signed: 07/15/2017 04:14 PM Electronically Signed By:Guera Lynch RN [facility] CM Progress Note CM Note CM Note Notes: 86 year old male admitted for Abd pain. He has a hx of End stage renal dis, Hyperkalemia, HTN, HLD, CAD, Hypothyroid, Renal CA S/P R nephrectomy. In his work up a nodularity was noted in nephrectomy bed, Cholelithiasis. Patient will be discharged. He has dialysis MWF, he will follow up with Gaston Ji and Patrice. No other discharge needs. Date Signed: 07/16/2017 02:46 PM Electronically Signed By:Bria Mckenzie LCSW Case Management Discharge Plan Note Case Management Discharge Discharge Order Complete? Answers: Yes Patient to Obtain Answers: via Family Medications Transportation Arranged Answers: Family/Friends Transport will Pick (Date 07/16/2017 12:00 AM & Time) Discharge Comments Notes: Patient has been discharged. He has dialysis MWF and will follow up with Gaston Ji and Patrice. Date Signed: 07/16/2017 02:49 PM Electronically Signed By:Bria Mckenzie LCSW Intervention Information
[2017-07-16] MEDS ORDERED: VITAMIN B COMPLEX 1 EA CAP/TAB PO SCH (18:00)
[2017-07-16] MEDS ORDERED: LISINOPRIL 40 MG TAB PO SCH (18:00)
[2017-07-16] MEDS ORDERED: ATORVASTATIN CALCIUM 40 MG TAB PO SCH (21:00)
[2017-07-18] MEDS ORDERED: CINACALCET HCL 30 MG TAB PO SCH (18:00)
== END 2017-07-16 12:47 | disposition home or self-care (01) ==
LOC: F2W 20:20
PROVIDERS: ADMIT Internal Medicine; ATTEND Internal Medicine
DX: K52.9 Noninfective gastroenteritis and colitis, unspecified (principal); E87.5 Hyperkalemia; N18.6 End stage renal disease; I12.0 Hypertensive chronic kidney disease with stage 5 chronic kidney disease or end stage renal disease; E78.5 Hyperlipidemia, unspecified; I25.10 Atherosclerotic heart disease of native coronary artery without angina pectoris; E03.9 Hypothyroidism, unspecified; K80.20 Calculus of gallbladder without cholecystitis without obstruction; K57.90 Diverticulosis of intestine, part unspecified, without perforation or abscess without bleeding; Z95.0 Presence of cardiac pacemaker; Z96.653 Presence of artificial knee joint, bilateral; Z99.2 Dependence on renal dialysis; Z85.528 Personal history of other malignant neoplasm of kidney; Z90.5 Acquired absence of kidney
CPT/HCPCS: 74177; 76705; 93005; G0378; Q9967; 82947-QW

== ENCOUNTER 2017-12-03 09:02 | Emergency (ER) | payer OTHER ==
--- NOTE | 2017-12-03 09:18 | EDPHY ---
H & P Stated Complaint: Sore throat since Monday, N/V. Recent diaylsis. Time Seen by Provider: 12/03/17 09:16 HPI/ROS: HPI: This is an 87-year-old male who presents with Chief Complaint: Sore throat since Monday Location: Throat Quality: Sore Duration: 1 day Signs and Symptoms: No fever, + pain with swallowing, + swollen glands, + left ear plugging, no cough, no neck stiffness Timing: Acute, worsening Severity: Moderate Context: Patient has end-stage renal disease, receives hemodialysis at [facility], Monday, presents with complaints of a sore throat since Monday that is gradually worsening. He was able to swallow his large phosphorus pills on Monday but unable to swallow this morning. He reports that he has swollen glands. No fever/cough/shortness of breath/chest pain/ abdominal pain. He does complains of some left ear fullness. Reports that during dialysis on Monday he completed only 3 hr as because he became dizzy and had a syncopal episodes. They gave him 500 cc of fluid and symptoms resolved. Patient reports that this has happened in the past and he was not too concerned about. reports that he is at his baseline currently other than the sore throat. He has not tried [id number] Tylenol for his throat discomfort. He did try tea with honey with mild transient relief. Modifying Factors: See above Comment: ROS: see HPI Constitutional: No fever, no chills, no weight loss Eyes: No blurred vision Respiratory: No shortness of breath, no cough Cardiovascular: No chest pain Gastrointestinal: No nausea, no vomiting, no diarrhea Genitourinary: No dysuria Extremities: No myalgias Neurologic: No weakness, no numbness Skin: No rashes Hematologic: No bruising, no bleeding MEDICAL/SURGICAL/SOCIAL HISTORY: Medical/Surgical history: End Stage Renal Failure, pacemaker, left and right knee replacements, RFA fistula, hypertension Social history: . Retired. Family history noncontributory CONSTITUTIONAL: Extremely pleasant nontoxic-appearing elderly white male, at bedside, awake and alert, no obvious distress HEENT: Atraumatic and normocephalic, PERRL, EOMI. Tympanic membranes clear. Tonsils no hypertrophy; no erythema; no postpharyngeal edema; uvula midline. Oropharynx clear, no exudate and moist pink mucosa. Airway patent. Mild spotty anterior cervical lymphadenopathy. No meningismus. Cardiovascular: Normal S1/S2, regular rate, regular rhythm, without murmur rub or gallop. PULMONARY/CHEST: Symmetrical and nontender. Clear to auscultation bilaterally. Good air movement. No accessory muscle usage. ABDOMEN: Soft, nondistended, nontender, no rebound, no guarding, no peritoneal signs, no masses or organomegaly. No CVAT. EXTREMITIES: 2/2 pulses, strength 5/5, no deformities, no clubbing, no cyanosis or edema. NEUROLOGICAL: no focal neuro deficits. GCS 15. SKIN: Warm and dry, no erythema. no rash. Good capillary refill. Source: Patient, Family () Exam Limitations: No limitations - Personal History Tetanus Vaccine Date: 2009 - Medical/Surgical History Hx Asthma: No Hx Chronic Respiratory Disease: No Hx Diabetes: No Hx Cardiac Disease: Yes Hx Renal Disease: Yes Hx Cirrhosis: No Hx Alcoholism: No Hx HIV/AIDS: No Hx Splenectomy or Spleen Trauma: No Other PMH: PMH/PSH: End Stage Renal Failure, pacemaker, left and right knee replacements, RFA fistula,HTN - Social History Smoking Status: Never smoked Constitutional: Initial Vital Signs Temperature (C) 36.7 C 12/03/17 09:03 Heart Rate 100 12/03/17 09:03 Respiratory Rate 16 12/03/17 09:03 Blood Pressure 124/76 H 12/03/17 09:03 O2 Sat (%) 98 12/03/17 09:03 O2 Delivery Mode Room Air Allergies/Adverse Reactions: No Allergies [NKA] Allergy (Verified 07/15/17 15:03) Home Medications: Medication Instructions Recorded Aspirin EC [Aspirin EC 81 mg (*)] 81 mg PO DAILY 07/15/17 Atorvastatin Calcium [Lipitor 40 40 mg PO HS 07/15/17 mg (*)] Carboxymethylcellulose 1% [Refresh 1 justine EACHEYE PRN PRN 07/15/17 Celluvisc (*)] Carvedilol [Coreg (*)] 25 mg PO BIDMEAL 07/15/17 Cinacalcet HCl [Sensipar (*)] 30 mg PO TUTH@1800 07/15/17 Ezetimibe [Zetia 10 MG (*)] 10 mg PO DAILY 07/15/17 Folic Acid/Vit B Complex and C 1 each PO DAILY18 07/15/17 [Dialyvite Tablet] Levothyroxine [Synthroid 50 mcg 50 mcg PO DAILY06 07/15/17 (*)] Lisinopril [Zestril 40 mg (*)] 40 mg PO DAILY18 07/15/17 [place]-3S/Dha/Epa/Fish Oil/D3 2 each PO BIDMEAL 07/15/17 [[place]-3 + D Softgel] Polyethylene Glycol 3350 [Miralax 17 gm PO DAILY 07/15/17 17 gm (*)] Sevelamer Carbonate [Renvela] 3,200 mg PO TIDMEAL 07/15/17 Triamcinolone 0.1% [Triamcinolone 1 justine TP HS PRN 07/15/17 0.1% Cream (*)] amLODIPine BESYLATE [Norvasc 10 mg 10 mg PO HS 07/15/17 (*)] Azithromycin [Zithromax] 250 mg PO DAILY #6 tab 12/03/17 Medical Decision Making ED Course/Re-evaluation: Strep test oral medications ordered Vital signs reviewed; blood pressure stable; Afebrile and no systemic signs. No signs of airway compromise/tonsillar abscess No indication for laboratory findings at this time; patient reports that he is at his baseline and has dialysis tomorrow. Given p.o. Decadron 8 mg, 15 mL viscous lidocaine with moderate relief of discomfort. Rapid Strep negative but immunocompetent elderly patient; will treat with azithromycin. Passed p.o. Trial prior to discharge. This patient was seen under the supervision of my secondary supervising physician. I evaluated care for this patient independently. Differential Diagnosis: ED sore throat differential diagnosis includes but is not limited to strep pharyngitis, viral pharyngitis, tonsillar abscess, upper respiratory infection, Dean's angina. - Data Points Laboratory Results: 12/03/17 12/03/17 Unknown 09:25 Group A Strep Screen NEGATIVE (NEGATIVE) Group A Strep DNA Pending Medications Given: Discontinued Medications Dexamethasone (Decadron) 8 mg PO EDNOW ONE Stop: 12/03/17 09:29 Last Admin: 12/03/17 09:31 Dose: 8 mg Lidocaine (Lidocaine 2% Viscous) 15 ml PO EDNOW ONE Stop: 12/03/17 09:29 Last Admin: 12/03/17 09:31 Dose: 15 ml Departure - Departure Disposition: Home, Routine, Self-Care Clinical Impression: Immunocompromised patient, End stage renal disease on dialysis Pharyngitis Qualifiers: Pharyngitis/tonsillitis etiology: unspecified etiology Qualified Code(s): J02.9 - Acute pharyngitis, unspecified Condition: Good Instructions: Pharyngitis (ED) Additional Instructions: Please take antibiotics as directed until complete. Perform salt water gargles several times per day or use [id number] cough drops or throat spray as needed for sore throat. Apply Vaseline to your nostrils as needed for nasal dryness. If your nose begins to bleed, avoid digital manipulation; apply direct pressure for several minutes to get the bleeding to stop. Please attend your dialysis session tomorrow. Referrals: Juan Ibrahim PA [Primary Care Provider] - As per Instructions Prescriptions: Azithromycin [Zithromax] 250 mg PO DAILY #6 tab
[2017-12-03] MEDS ORDERED: LIDOCAINE 2% VISCOUS 15 ML UDCUP PO ONE (09:28)
[2017-12-03] MEDS ORDERED: DEXAMETHASONE 4 MG TAB PO ONE (09:28)
[2017-12-03 09:50] VITALS: BP 145/78
== END 2017-12-03 09:52 | disposition home or self-care (01) ==
DX: J02.9 Acute pharyngitis, unspecified (principal); D84.9 Immunodeficiency, unspecified; I12.0 Hypertensive chronic kidney disease with stage 5 chronic kidney disease or end stage renal disease; N18.6 End stage renal disease; Z79.82 Long term (current) use of aspirin; Z95.0 Presence of cardiac pacemaker

== ENCOUNTER 2018-01-26 13:31 | Inpatient (IN) | payer OTHER ==
--- NOTE | 2018-01-26 13:44 | CPEKG ---
Heart Rate: 72 RR Interval: 833 P-R Interval: 180 QRSD Interval: 188 QT Interval: 524 QTC Interval: 574 P [place]: 251 QRS [place]: -82 T Wave [place]: 89 EKG Severity - ABNORMAL ECG - EKG Impression: A-V DUAL-PACED RHYTHM WITH SOME INHIBITION Electronically Signed By: Omar Sandoval 26-Jan-2018 18:02:32
--- NOTE | 2018-01-26 13:53 | EDPHY ---
H & P Time Seen by Provider: 01/26/18 13:44 HPI/ROS: Chief complaint. Syncope HPI. Patient is an 87-year-old male here by 911 after having a syncopal episode at dialysis. The patient has Monday dialysis. His tells me this was routine and he felt fine when he got there. However apparently he had some low blood pressure at the onset of his dialysis. Patient and his tell me it was lower than usual. In dialysis he apparently had 4 L taken off. Per his he then became unresponsive and per staff he was not breathing and they could not detect a pulse. He was lowered to the floor. He seemed to be gagging and trying to vomit. After about 2 min he became responsive again. No CPR was performed. The patient apparently has a history of syncope though not for quite some time. Blood sugar was 1-0 weight per EMS. He received a 400 cc fluid bolus. The patient now seems intermittently confused per his . ROS Constitutional. Syncope Eyes. no problems with vision ENT. no sore throat, no nasal drainage Cardiovascular. no chest pain Respiratory. no shortness of breath, no cough Abdominal. Nausea . no problems urinating MS. no calf pain/swelling, no neck/back pain, no joint pain Skin. no rash Lymph. no swollen glands Neuro. no headache, no dizziness, no difficulty walking or with speech Past Medical/Surgical History: Past medical history end-stage renal disease, pacemaker, right forearm fistula, hypertension Social History: , nonsmoker, no alcohol Smoking Status: Never smoked Physical Exam: General Appearance: Alert well-developed male moderate distress vital signs are stable Eyes: Pupils equal and round no pallor or injection. ENT, Mouth: Mucous membranes are moist. Respiratory: There are no retractions, lungs are clear to auscultation. Cardiovascular: Regular rate and rhythm. Gastrointestinal: Abdomen is soft and nontender, no masses, bowel sounds normal. Neurological: Awake and alert, sensory and motor exams grossly normal. Skin: Warm and dry, no rashes. Musculoskeletal: Neck is supple nontender. Extremities symmetrical, full range of motion. Psychiatric: Patient is confused and not sure of place or time. This is unusual per his Constitutional: Initial Vital Signs Temperature (C) 36.7 C 01/26/18 13:47 Heart Rate 79 01/26/18 13:47 Respiratory Rate 18 01/26/18 13:47 Blood Pressure 160/137 H 01/26/18 13:47 O2 Sat (%) 94 01/26/18 13:47 O2 Delivery Mode Nasal Cannula O2 (L/minute) 4 Allergies/Adverse Reactions: No Allergies [NKA] Allergy (Verified 01/26/18 14:01) Home Medications: Medication Instructions Recorded Aspirin EC [Aspirin EC 81 mg (*)] 81 mg PO DAILY 07/15/17 Atorvastatin Calcium [Lipitor 40 40 mg PO HS 07/15/17 mg (*)] Carboxymethylcellulose 1% [Refresh 1 justine EACHEYE PRN PRN 07/15/17 Celluvisc (*)] Carvedilol [Coreg (*)] 25 mg PO BIDMEAL 07/15/17 Cinacalcet HCl [Sensipar (*)] 30 mg PO TUTH@1800 07/15/17 Ezetimibe [Zetia 10 MG (*)] 10 mg PO DAILY 07/15/17 Folic Acid/Vit B Complex and C 1 each PO DAILY18 07/15/17 [Dialyvite Tablet] Levothyroxine [Synthroid 50 mcg 50 mcg PO DAILY06 07/15/17 (*)] Lisinopril [Zestril 40 mg (*)] 40 mg PO DAILY18 07/15/17 [place]-3S/Dha/Epa/Fish Oil/D3 2 each PO BIDMEAL 07/15/17 [[place]-3 + D Softgel] Polyethylene Glycol 3350 [Miralax 17 gm PO DAILY 07/15/17 17 gm (*)] Sevelamer Carbonate [Renvela] 3,200 mg PO TIDMEAL 07/15/17 Triamcinolone 0.1% [Triamcinolone 1 justine TP HS PRN 07/15/17 0.1% Cream (*)] amLODIPine BESYLATE [Norvasc 10 mg 10 mg PO HS 07/15/17 (*)] Azithromycin [Zithromax] 250 mg PO DAILY #6 tab 12/03/17 Medical Decision Making - Diagnostics EKG Interpretation: EKG shows paced rhythm with left axis deviation. Interventricular conduction delay. No significant ST elevation or depression. No arrhythmia. The rate is 72 Imaging Results: Imaging Impressions Chest X-Ray 01/26/18 14:03 Impression: No acute findings in the chest. Head CT 01/26/18 14:03 Impression: 1. Elderly brain with atrophy and probable white matter small vessel disease. 2. Nothing acute is identified. Results called and discussed with VINCENT DUKE M.D. on 01/26/2018 14:49. non contrast head ct reviewed by me and discussed with Dr. Aaron shows atrophy and small vessel disease but no evidence of intracranial bleeding One-view chest x-ray interpreted by me shows the patient's pacemaker but there is no pneumothorax or pneumonia Procedures: IV normal saline, monitor ED Course/Re-evaluation: Re-evaluation 2:55 p.m.--patient is stable Pacemaker is interrogated in finds no evidence of asystole or tachy dysrhythmias I discussed the findings with the patient and his . We discussed treatment plan including recommendation as he is still somewhat altered. They expressed understanding and agreement I consulted and discussed case with Latanya Huertas as the patient's regular physician is Dr. Lamas. She agrees to admission Differential Diagnosis: Likely syncope due to hypotension. No evidence for cardiac arrest though that was the finding at dialysis. I also considered intracranial bleeding as he has altered mental status. Atrophy but no evidence for intracranial bleeding or CVA. - Data Points Laboratory Results: 01/26/18 01/26/18 13:49 13:48 POC Hgb 12.9 gm/dL L gm/dL (13.7-17.5) POC Hct 38 % L % (40-51) POC Sodium 135 mEq/L mEq/L (135-145) POC Potassium 4.1 mEq/L mEq/L (3.3-5.0) POC Chloride 94 mEq/L L mEq/L (97-110) POC BUN 23 mg/dL mg/dL (7-23) POC Creatinine 4.5 mg/dL H mg/dL (0.7-1.3) POC Glucose 110 mg/dL H mg/dL (70-100) POC Troponin I 0.01 ng/mL ng/mL (0.00-0.08) Point of Care Test Results: Chemistry 01/26/18 01/26/18 13:49 13:48 POC Sodium 135 mEq/L mEq/L (135-145) POC Potassium 4.1 mEq/L mEq/L (3.3-5.0) POC Chloride 94 mEq/L L mEq/L (97-110) POC BUN 23 mg/dL mg/dL (7-23) POC Creatinine 4.5 mg/dL H mg/dL (0.7-1.3) POC Glucose 110 mg/dL H mg/dL (70-100) POC Troponin I 0.01 ng/mL ng/mL (0.00-0.08) ISTAT H&H 01/26/18 13:49 POC Hgb 12.9 gm/dL L gm/dL (13.7-17.5) POC Hct 38 % L % (40-51) Departure - Departure Disposition: [facility] ([place], [place]) Inpatient Acute Clinical Impression: Syncope and collapse Condition: Fair
[2018-01-26] MEDS ORDERED: ONDANSETRON 4 MG/2 ML VIAL IVP PRN ×2 (19:04→20:00)
[2018-01-26] MEDS ORDERED: ACETAMINOPHEN 325 MG TAB PO PRN ×2 (19:04→20:00)
[2018-01-26] MEDS ORDERED: ONDANSETRON DISINTEGRATING 4 MG TAB PO PRN ×2 (19:04→20:00)
[2018-01-26] MEDS ORDERED: TRIAMCINOLONE 0.1% 15 GM CRTUBE TP PRN (19:52)
[2018-01-26] MEDS ORDERED: CARBOXYMETHYLCELLULOSE 1% 0.4 ML DROPERETTE EACHEYE PRN (19:52)
--- NOTE | 2018-01-26 20:00 | SOAPPROG ---
SOAP Progress Note Assessment/Plan: Assessment: Plan: 01/26/18 20:19 Syncope: Suspect due to episode of low blood pressure, as no suggestion cardiac arrhythmia, TIA/CVA, infection, cardiac ischemia. Doing well currently other than confusion not usual for him. Will monitor overnight. Confusion: likely due to brain injury following syncopal episode, as he is reported to have been in cardiorespiratory arrest for a brief time, though recovered spontaneously with some chest stimulation. Hypertension: on lisinopril, carvedilol, and amlodipine. He just saw Dr. Chavis two days ago and states his amlodipine was adjusted so that he takes none if BP< 130, 5mg if 130-150, and 10mg if >150. He did take 10mg this morning, so that may have contributed to his syncopal episode. CAD: Last EBCT heart scan in 09/07. Ca score 2908, with annualized rate of progression -10%. Will continue his current supplements. Hypercholesterolemia: on zetia, atorvastatin. Will continue Hypothyroid: on replacement. Will continue DVT prophylaxis: lovenox Dispo: admitted to obs, hopefully home tomorrow if stable Subjective: 87 yo male with multiple medical problems including ESRD on dialysis MWF, CAD, hypertension had been in his usual state of health when he went to dialysis today. Initially felt well, but as dialysis progressed, felt less well. He had 3L fluid removed, and by the end, he didn't feel well at all. He got up and walked over to the scale and fainted. Per his , he had no pulse or respirations for about 2 minutes. He is DNR, so the staff rubbed his chest and he woke up spontaneously. He doesn't recall any chest pain or irregular rhythm prior to fainting. 911 was called and he was brought by ambulance to the ER. He was given 400cc fluids en route. His labs were unremarkable, CXR was ok and CT head showed age related atrophy without bleeding or other acute change. EKG showed a paced rhythm. His pacemaker didn't show any evidence of arrhythmia when interrogated. Troponin was negative. Currently he has a mild GRAHAM and some confusion. He is oriented to day of the week, month, but not date or year. His states his confusion has improved. Initially his speech was very slow, and is more fluent now. He is being admitted for observation due to confusion. Objective: Vital Signs Temp Pulse Resp BP Pulse Ox 36.6 C 61 17 183/93 H 98 01/26/18 16:48 01/26/18 16:48 01/26/18 16:48 01/26/18 16:48 01/26/18 16:48 General: well-appearing, alert, pleasant, NAD HEENT: NC/AT. PERRL, EOMI. Oropharynx moist. Neck: supple, no adenopathy, no thyromegaly Lungs: clear bilaterally. No rales, wheezes Cardiovascular: RRR without murmur. Dialysis shunt in R forearm Abdomen: +bowel sounds, soft, NT. No hepatosplenomegaly, masses Extremities: no clubbing, cyanosis, edema Musculoskeletal: moving all extremities Skin: no rash Neurologic: not fully oriented as noted in HPI. Speech mostly fluent, though some word finding difficulty Psychiatric: no agitation. Normal mood, affect ICD10 Worksheet Patient Problems: Problems Problem Status Onset Syncope and collapse Acute Abdominal pain Acute Chronic renal failure Acute Hyperkalemia Acute
[2018-01-26] MEDS: ATORVASTATIN CALCIUM 40 MG TAB PO SCH (20:30)
[2018-01-26] MEDS: LISINOPRIL 40 MG TAB PO SCH (21:00)
--- NOTE | 2018-01-26 22:09 | GHP ---
[f rep st] HISTORY AND PHYSICAL DATE OF ADMISSION: 01/26/2018 HISTORY OF PRESENT ILLNESS: The patient is an 87-year-old male with multiple medical problems including endstage renal disease, on dialysis Monday, Monday , and Monday; coronary artery disease; and hypertension, who had been in his usual state of health when he went to dialysis today. Initially felt well, but as dialysis progressed, he felt less well. He usually has no problems with dialysis. He had 3 L of fluid removed, and by the end of dialysis, he did not feel well at all. He got up and walked over to the scale and fainted. Per his , he had no pulse or respirations for about 2 minutes. He is DNR, so the staff rubbed his chest but did not do CPR, and he woke up spontaneously. He does not recall any chest pain or irregular rhythm prior to fainting. 911 was called and he was brought by ambulance to the emergency department. He was given 400 cc of fluid en route. His labs were unremarkable. Chest x-ray was okay, and CT of the head showed age-related atrophy without bleed or other acute change. EKG showed a paced rhythm. His pacemaker did not show any evidence of arrhythmia when interrogated. Troponin was negative. Currently, he has a mild headache and some confusion. He is oriented to the day of the week and month, but not the date or year. His states his confusion has improved. Initially, his speech was very slow but is more fluent now. He is being admitted for observation due to his syncopal episode and ongoing confusion. PAST MEDICAL HISTORY: Colon polyps, endstage renal disease on dialysis, Dupuytren contractures, gout, high cholesterol, hypertension, pulmonary emboli after extensive travel, coronary artery disease, prostate cancer status post seed placement, pacemaker placement 2009, hypothyroidism. MEDICATIONS: Amlodipine 10 mg. He takes no amlodipine if his blood pressure is under 130. He takes 5 mg for blood pressure 130-150 and 10 mg with blood pressure greater than 150. Baby aspirin daily, atorvastatin 40 mg daily, carboxymethylcellulose 1% in each eye as needed, carvedilol 20 mg twice daily, cinacalcet HCL 30 mg p.o. Tuesdays and , Zetia 10 mg daily, folic acid , B complex and C daily, levothyroxine 50 mcg daily, lisinopril 40 mg daily, [place]-3 with vitamin D capsule two twice a day with a meal, MiraLAX 17 g daily 7 , sevelamer carbonate 3200 mg p.o. three times daily with meals, triamcinolone 0.1% cream as needed. ALLERGIES: No known drug allergies. SURGICAL HISTORY: None documented. FAMILY HISTORY: Noncontributory. SOCIAL HISTORY: The patient is . He is a nonsmoker. REVIEW OF SYSTEMS: GENERAL: No fever or chills. HEENT: No rhinitis or sore throat. RESPIRATORY: No cough, shortness of breath, wheezing. CARDIOVASCULAR : No chest pain, or irregular rhythms. No edema. GASTROINTESTINAL: No nausea , vomiting, diarrhea, or constipation. No abdominal pain. No blood in the stool. GENITOURINARY: He makes very little urine. MUSCULOSKELETAL: He has a right shoulder injury and is currently undergoing PT; injection was not helpful. He does have some cervical arthritis and stenosis, so will be getting an injection in his neck next week. SKIN: No rashes. NEURO: Mild headache currently. Confusion as noted in HPI. This is not typical for him. No problems with balance. No numbness, weakness, or tingling. PSYCHIATRIC: No agitation. PHYSICAL EXAMINATION: VITAL SIGNS: Temperature 36.6, pulse 61, respiration 17 , blood pressure 183/93, oxygen saturation 98% on room air. GENERAL: He is a well-appearing male, alert, pleasant, no acute distress. HEENT: Normocephalic and atraumatic. Pupils equal, round, and reactive to light. Extraocular movements are intact. Oropharynx is moist. NECK: Supple without adenopathy or thyromegaly. LUNGS: Clear bilaterally. No wheezes or rales. CARDIOVASCULAR: Regular rate and rhythm without murmur. Dialysis shunt in right forearm. ABDOMEN: Normal bowel sounds. Soft and nontender. No hepatosplenomegaly or masses. EXTREMITIES: No clubbing, cyanosis, or edema. MUSCULOSKELETAL: Moving all extremities: No deformities noted. SKIN: No rash. NEUROLOGIC: Not fully oriented as noted in HPI. Speech is mostly fluent , though is having some word-finding difficulty. PSYCHIATRIC: No agitation. Normal mood and affect. ASSESSMENT AND PLAN: 1. Syncopal episode. I suspect this was due to low blood pressure as no suggestion of cardiac arrhythmia, transient ischemic attack/cerebrovascular accident, infection, or cardiac ischemia. He states he had 3L of fluid removed during dialysis which is a little more than he reports he had gained (2.7L) since his previous dialysis. He is doing well currently other than confusion, which is not usual for him. We will continue to monitor overnight. 2. Confusion. Likely due to brain injury following syncopal episode as he is reported to have been in cardiorespiratory arrest for a brief time, though recovered spontaneously with some chest stimulation. Per his , his confusion has actually improved. 3. ESRD: on dialysis MWF 4. Hypertension. On lisinopril, carvedilol, and amlodipine. Of note, he just saw Dr. Chavis 2 days ago and states that his amlodipine was adjusted so that he takes none if his blood pressure is less than 130, 5 mg if blood pressure is 130-150, and 10 mg if systolic blood pressure greater than 150. He did take 10 mg this morning, so that may have contributed to his syncopal episode. 5. Coronary artery disease. Last EBCT heart scan was in 08/2017, calcium score 2908 with annualized rate of progression of -10%. We will continue with his current supplements. 6. Hypercholesterolemia. Currently on Zetia and atorvastatin and will continue. 7. Hypothyroidism. On replacement and will continue. 8. Deep venous thrombus prophylaxis. Lovenox. 9. Disposition: Admitted to observation. Hopefully home tomorrow if stable. /[id number]/MODL MTDD
[2018-01-26] MEDS: NEPHROVITE FOLIC ACID/VIT B&C 1 TAB PO SCH (22:20)
[2018-01-26] MEDS: [UNRECOGNIZED DRUG - OTHER] PO SCH (22:20)
[2018-01-27] MEDS: LEVOTHYROXINE 50 MCG TAB PO SCH (04:05)
[2018-01-27] MEDS: CARVEDILOL 25 MG TAB PO SCH ×2 (08:22→18:41)
[2018-01-27] MEDS: EZETIMIBE 10 MG TAB PO SCH (08:22)
[2018-01-27] MEDS: POLYETHYLENE GLYCOL 3350 17 GM PKT PO SCH (08:22)
[2018-01-27] MEDS: ASPIRIN EC 81 MG TAB PO SCH (08:22)
[2018-01-27] MEDS: ENOXAPARIN 40 MG/0.4 ML SYR SC SCH ×2 (08:23→08:31)
[2018-01-27] MEDS ORDERED: ENOXAPARIN 40 MG/0.4 ML SYR SC SCH (09:00)
--- NOTE | 2018-01-27 10:01 | ASMTCMCOM ---
CM Note CM Note Notes: 01/27/2018 Case Management Note Met w/pt and Guillermina. SINGH signed. Pt was admitted after an episode of syncope. Pt lives with his in their own home. They have no need for any services such as lawn care or house keeping. Pt drives very little however his is able to drive and obtain groceries. Pt has utilized home care in the past after knee replacement and after kidney surgery. He was unable to recall the agency name. Pt reports he spent time at [facility] in the past. There are no case management needs identified at this time. There are no PT or OT evals ordered currently. Case Management d/c poc: anticipating home independent with follow up as directed. Case Management available if needs change. Date Signed: 01/27/2018 10:00 AM Electronically Signed By:Jayde French RN
[2018-01-27] MEDS: EPA PO SCH ×2 (10:51→18:42)
[2018-01-27] MEDS: DHA PO SCH ×2 (10:51→18:42)
[2018-01-27] MEDS: D3 PO SCH ×2 (10:51→18:42)
[2018-01-27] MEDS: [UNRECOGNIZED DRUG - OTHER] PO SCH ×3 (10:51→18:42)
[2018-01-27] MEDS: OMEGA PO SCH ×2 (10:51→18:42)
[2018-01-27] MEDS: FISH OIL PO SCH ×2 (10:51→18:42)
--- NOTE | 2018-01-27 10:59 | SOAPPROG ---
SOAP Progress Note Assessment/Plan: Assessment: Plan: 01/26/18 20:19 Syncope: Suspect due to episode of low blood pressure, as no suggestion cardiac arrhythmia, TIA/CVA, infection, cardiac ischemia. Doing well currently other than confusion not usual for him. Will monitor overnight. Confusion: likely due to brain injury following syncopal episode, as he is reported to have been in cardiorespiratory arrest for a brief time, though recovered spontaneously with some chest stimulation. Hypertension: on lisinopril, carvedilol, and amlodipine. He just saw Dr. Chavis two days ago and states his amlodipine was adjusted so that he takes none if BP< 130, 5mg if 130-150, and 10mg if >150. He did take 10mg this morning, so that may have contributed to his syncopal episode. CAD: Last EBCT heart scan in 09/07. Ca score 2908, with annualized rate of progression -10%. Will continue his current supplements. Hypercholesterolemia: on zetia, atorvastatin. Will continue Hypothyroid: on replacement. Will continue DVT prophylaxis: lovenox Dispo: admitted to obs, hopefully home tomorrow if stable 01/27/18 10:51 Syncope: no further episodes. No arrhythmia on monitor. Feeling better and feels ready to go home. Confusion: improved from last night, so I expect he will continue to improve. Not yet at baseline. Per pt and his , no home care needs. Hypertension: received clarification on amlodipine dose from : <110, none. 110-150 5mg, >150 10mg. To be taken at night. Dispo: home today. 01/27/18 10:59 Subjective: Feeling back to normal today. GRAHAM is gone. Still with some memory problems but better than yesterday. No arrhythmia overnight. Objective: Vital Signs Temp Pulse Resp BP Pulse Ox 36.8 C 68 16 164/78 H 96 01/27/18 07:28 01/27/18 07:28 01/27/18 07:28 01/27/18 07:28 01/27/18 07:28 01/26/18 01/27/18 01/28/18 05:59 05:59 05:59 Intake Total 150 Balance 150 General: well-appearing, alert, sitting up in chair, ready to go home Lungs: clear bilaterally Cardiovascular: RRR without murmur Abdomen: +bowel sounds, soft, NT Extremities: no edema Neurologic: alert. Able to recall year after short delay, and month. Speech more fluent than last night. ICD10 Worksheet Patient Problems: Problems Problem Status Onset Syncope and collapse Acute Abdominal pain Acute Chronic renal failure Acute Hyperkalemia Acute
--- NOTE | 2018-01-27 11:50 | ASDISCHSUM ---
Discharge Information Plan Status:Home with No Needs Medically Cleared to Leave:01/28/2018 Discharge Date:01/28/2018 CM D/C Disposition:Home, Routine, Self-Care ADT D/C Disposition:Home, Routine, Self-Care Projected Discharge Date:01/28/2018 Transportation at D/C:Family Discharge Delay Reason: Follow-Up Date:01/28/2018 Discharge Slot: Final Diagnosis: Placement Information Patient Contact Information Contact Name:DANIEL Relationship: Address:[address] [place] [address] City:[place] Alternate Phone: State/Zip Code:[place] [address] Email: Financial Information Financial Class:Medicare Advantage Plans Primary Plan Desc:[employer] MEDICARE ADV Primary Plan Number:[id number] Secondary Plan Desc: Secondary Plan Number: Assessment Information [facility] CM Progress Note CM Note CM Note Notes: 01/27/2018 Case Management Note Met w/pt and Guillermina. SINGH signed. Pt was admitted after an episode of syncope. Pt lives with his in their own home. They have no need for any services such as lawn care or house keeping. Pt drives very little however his is able to drive and obtain groceries. Pt has utilized home care in the past after knee replacement and after kidney surgery. He was unable to recall the agency name. Pt reports he spent time at [facility] in the past. There are no case management needs identified at this time. There are no PT or OT evals ordered currently. Case Management d/c poc: anticipating home independent with follow up as directed. Case Management available if needs change. Date Signed: 01/27/2018 10:00 AM Electronically Signed By:Jayde French RN LACE LACE Length of stay for Answers: Less than 1 day current admission Acuity / Level of Answers: No Care: Did the patient have an inpatient admission? Comorbidities - select Answers: Any tumor (including all that apply lymphoma or leukemia) Coronary Artery Disease Moderate or severe liver or renal disease Other Notes: pacemaker, HTN Score: 9 Date Signed: 01/27/2018 11:47 AM Electronically Signed By:Jayde French RN Case Management Discharge Plan Note Case Management Discharge Discharge Order Complete? Answers: Yes Patient to Obtain Answers: via Family Medications Transportation Arranged Answers: Family/Friends Discharge Comments Notes: 01/27/2018 Case Management Note Pt to discharge independent with follow up as directed. Date Signed: 01/27/2018 11:49 AM Electronically Signed By:Jayde French RN [facility] CM Progress Note CM Note CM Note Notes: 01/28/2018 Case Management Note Pt d/c cancelled yesterday d/t episodes of vomiting and diarrhea. Pt to resume dialysis on MWF. There are no case management d/c needs identified. Case Management d/c poc: home with supportive with . Pt to follow up as directed. Date Signed: 01/28/2018 12:10 PM Electronically Signed By:Jayde French RN Intervention Information Intervention Type:*SINGH-Signed Date of Service:01/27/2018 09:56 AM Patient Type:Observation Staff Member:FE French [facility] Hours:0.25 Discipline: Severity: Comment:
--- NOTE | 2018-01-27 13:27 | GDS ---
[f rep st] DISCHARGE SUMMARY DISCHARGE DIAGNOSES: 1. Syncopal episode. 2. 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 3. Hypertension. 4. Coronary artery disease. 5. Hypercholesterolemia. 6. Hypothyroidism. HOSPITAL COURSE: Please see admitting history and physical for full admission details. Briefly, the patient is an 87-year-old male with multiple medical problems including endstage renal disease on dialysis Monday, Monday, and Monday, who was at dialysis on the day of admission, and through the course of dialysis did not feel well. Subsequently, when he walked over to be weighed at the end of dialysis, had a syncopal episode. He was noted to be without pulse or respirations for approximately 2 minutes prior to waking up spontaneously. He was brought to the emergency department by ambulance and subsequently admitted overnight for observation. During his hospital stay, his cardiac rhythm was monitored and showed no irregularity. He was initially confused and unable to remember the year and had some difficulty recalling the date as well as some other memory issues including slowed speech and slowed mentation. At this point, he is feeling much more his normal self. He continues to have some memory difficulties, but today was able to recall the year was 2017, although there was some delay with this. Both he and his feel comfortable going home. He will plan on dialysis per usual on Monday01/29/18. There were no home care needs identified so he will follow up with his primary care provider, KATIE Castro, within the next 1-2 weeks. /[id number]/MODL Addendum: pt's discharge yesterday was held due to nausea, vomiting and diarrhea which occurred prior to his leaving the hospital. Labs showed elevated K+ of 5.7. GI pathogen panel negative. Dr. Ji contacted and pt underwent dialysis for his high potassium last night. This morning, his GI symptoms have resolved, and his K+ is 4.9. He is stable for discharge now, and will plan on attending dialysis per usual tomorrow. PATRICK
--- NOTE | 2018-01-27 13:52 | PDMN ---
Medical Necessity Medical necessity: C/M review: Patient meets INPT criteria under [facility] M-340 Syncope, M-575 Ventriocular Arrthymias: Acute nausea, vomiting, diarrhea of unclear etiology 01/27/2018, discharge order cancelled 01/27/2018, acute syncope 01/26/2018 after hemodialysis - suspect low blood pressure, confusion - likely due to brain injury following syncopal episode as patient reported to have been in cardiopulmonary arrest for a brief time though recovered spontaneously with some chest stimulation just prior to this admission, confusion somewhat improved bit is persistent, requiring ongoing cardiac monitoring, oral Zofran as needed, pulse oximetry, close monitoring, comorbid hypertension, CAD, hypercholesterolemia, hypothyroidism, ESRD on hemodialysis Monday, Monday, Monday. anticipates > 2 MN LOS for ongoing med nec for eval and TX of above. patient is Medicare Advantage which follows guidelines CMS puts forth.
[2018-01-27 14:28] LABS: PLATELET COUNT 244 10^3/uL (150-400)
[2018-01-27] MEDS: LISINOPRIL 40 MG TAB PO SCH (18:40)
[2018-01-27] MEDS: NEPHROVITE FOLIC ACID/VIT B&C 1 TAB PO SCH (18:41)
--- NOTE | 2018-01-27 20:28 | SOAPPROG ---
SOAP Progress Note Assessment/Plan: Assessment: Plan: 01/26/18 20:19 Syncope: Suspect due to episode of low blood pressure, as no suggestion cardiac arrhythmia, TIA/CVA, infection, cardiac ischemia. Doing well currently other than confusion not usual for him. Will monitor overnight. Confusion: likely due to brain injury following syncopal episode, as he is reported to have been in cardiorespiratory arrest for a brief time, though recovered spontaneously with some chest stimulation. Hypertension: on lisinopril, carvedilol, and amlodipine. He just saw Dr. Chavis two days ago and states his amlodipine was adjusted so that he takes none if BP< 130, 5mg if 130-150, and 10mg if >150. He did take 10mg this morning, so that may have contributed to his syncopal episode. CAD: Last EBCT heart scan in 09/07. Ca score 2908, with annualized rate of progression -10%. Will continue his current supplements. Hypercholesterolemia: on zetia, atorvastatin. Will continue Hypothyroid: on replacement. Will continue DVT prophylaxis: lovenox Dispo: admitted to obs, hopefully home tomorrow if stable 01/27/18 10:51 Syncope: no further episodes. No arrhythmia on monitor. Feeling better and feels ready to go home. Confusion: improved from last night, so I expect he will continue to improve. Not yet at baseline. Per pt and his , no home care needs. Hypertension: received clarification on amlodipine dose from : <110, none. 110-150 5mg, >150 10mg. To be taken at night. Dispo: home today. 01/27/18 10:59 01/27/18 20:24 Addendum to earlier note: Pt developed nausea and vomited 2-3 times, and also had diarrhea twice prior to leaving hospital for anticipated discharge. Given his unusual syncopal episode yesterday with brief cardiopulmonary arrest, have opted to cancel discharge and monitor a little longer. Will check cbc, cmp, GI pathogen panel, though doubt infection. 01/27/18 20:28 Objective: Vital Signs Temp Pulse Resp BP Pulse Ox 36.7 C 66 16 138/72 H 94 01/27/18 20:00 01/27/18 20:00 01/27/18 20:00 01/27/18 20:00 01/27/18 20:00 Microbiology 01/27/18 17:48 Gastrointestinal Tract Panel (PCR) - Final Stool No Organism Detected Laboratory Results 01/27/18 14:15 01/27/18 18:25 01/26/18 01/27/18 01/28/18 05:59 05:59 05:59 Intake Total 400 Balance 400 ICD10 Worksheet Patient Problems: Problems Problem Status Onset Syncope and collapse Acute Abdominal pain Acute Chronic renal failure Acute Hyperkalemia Acute
[2018-01-27] MEDS: ATORVASTATIN CALCIUM 40 MG TAB PO SCH (21:17)
--- NOTE | 2018-01-28 00:05 | SOAPPROG ---
SOAP Progress Note Assessment/Plan: Assessment: Pt well known to me. Presents after syncopal episode post dialysis. Doing ok now, but has elevated K level, even though he received dialysis yesterday. Performing dialysis tonight. Recheck K tomorrow. Plan: 01/28/18 00:04 Subjective: Doing well Objective: Vital Signs Temp Pulse Resp BP Pulse Ox 36.7 C 66 16 138/72 H 94 01/27/18 20:00 01/27/18 20:00 01/27/18 20:00 01/27/18 20:00 01/27/18 20:00 Microbiology 01/27/18 17:48 Gastrointestinal Tract Panel (PCR) - Final Stool No Organism Detected Laboratory Results 01/27/18 14:15 01/27/18 18:25 01/26/18 01/27/18 01/28/18 05:59 05:59 05:59 Intake Total 400 Balance 400 Physical Exam - Physical Exam General Appearance: no apparent distress Respiratory: lungs clear Cardiac/Chest: regular rate, rhythm Extremities: normal inspection Neuro/Psych: oriented x 3 ICD10 Worksheet Patient Problems: Problems Problem Status Onset Syncope and collapse Acute Abdominal pain Acute Chronic renal failure Acute Hyperkalemia Acute
[2018-01-28] MEDS: POLYETHYLENE GLYCOL 3350 17 GM PKT PO SCH (10:06)
[2018-01-28] MEDS: CARVEDILOL 25 MG TAB PO SCH (10:07)
[2018-01-28] MEDS: LEVOTHYROXINE 50 MCG TAB PO SCH (10:07)
[2018-01-28] MEDS: ASPIRIN EC 81 MG TAB PO SCH (10:07)
[2018-01-28] MEDS: EZETIMIBE 10 MG TAB PO SCH (10:07)
--- NOTE | 2018-01-28 10:08 | SOAPPROG ---
SOAP Progress Note Assessment/Plan: Assessment: 1. ESRD Labs ok. Next HD Monday, likely as outpatient 2. Hyperkalemia Treated with dialysis last pm 3. Syncope This was the 17th episode by the patient. He had pacer interrogation yesterday. We will review run sheet from dialysis unit. 4. GI Some sx's yesterday, he is not fine. Subjective: Feels good Objective: Vital Signs Temp Pulse Resp BP Pulse Ox 36.7 C 75 16 136/72 H 92 01/28/18 07:36 01/28/18 07:36 01/28/18 07:36 01/28/18 07:36 01/28/18 07:36 Microbiology 01/27/18 17:48 Gastrointestinal Tract Panel (PCR) - Final Stool No Organism Detected Laboratory Results 01/27/18 14:15 01/28/18 04:08 01/27/18 01/28/18 01/29/18 05:59 05:59 05:59 Intake Total 650 Output Total 1000 Balance -350 Physical Exam - Physical Exam General Appearance: no apparent distress Respiratory: lungs clear Cardiac/Chest: regular rate, rhythm Extremities: normal inspection Neuro/Psych: oriented x 3 ICD10 Worksheet Patient Problems: Problems Problem Status Onset Syncope and collapse Acute Abdominal pain Acute Chronic renal failure Acute Hyperkalemia Acute
[2018-01-28 11:22] VITALS: BP 148/72
--- NOTE | 2018-01-28 11:41 | SOAPPROG ---
SOAP Progress Note Assessment/Plan: Assessment: Plan: 01/26/18 20:19 Syncope: Suspect due to episode of low blood pressure, as no suggestion cardiac arrhythmia, TIA/CVA, infection, cardiac ischemia. Doing well currently other than confusion not usual for him. Will monitor overnight. Confusion: likely due to brain injury following syncopal episode, as he is reported to have been in cardiorespiratory arrest for a brief time, though recovered spontaneously with some chest stimulation. Hypertension: on lisinopril, carvedilol, and amlodipine. He just saw Dr. Chavis two days ago and states his amlodipine was adjusted so that he takes none if BP< 130, 5mg if 130-150, and 10mg if >150. He did take 10mg this morning, so that may have contributed to his syncopal episode. CAD: Last EBCT heart scan in 09/07. Ca score 2908, with annualized rate of progression -10%. Will continue his current supplements. Hypercholesterolemia: on zetia, atorvastatin. Will continue Hypothyroid: on replacement. Will continue DVT prophylaxis: lovenox Dispo: admitted to obs, hopefully home tomorrow if stable 01/27/18 10:51 Syncope: no further episodes. No arrhythmia on monitor. Feeling better and feels ready to go home. Confusion: improved from last night, so I expect he will continue to improve. Not yet at baseline. Per pt and his , no home care needs. Hypertension: received clarification on amlodipine dose from : <110, none. 110-150 5mg, >150 10mg. To be taken at night. Dispo: home today. 01/27/18 10:59 01/27/18 20:24 Addendum to earlier note: Pt developed nausea and vomited 2-3 times, and also had diarrhea twice prior to leaving hospital for anticipated discharge. Given his unusual syncopal episode yesterday with brief cardiopulmonary arrest, have opted to cancel discharge and monitor a little longer. Will check cbc, cmp, GI pathogen panel, though doubt infection. 01/27/18 20:28 Subjective: Feels well this morning. No further nausea, vomiting, diarrhea. Underwent dialysis last night due to high potassium. K+ 4.9 this morning. Objective: Vital Signs Temp Pulse Resp BP Pulse Ox 36.5 C 65 16 148/72 H 92 01/28/18 11:21 01/28/18 11:21 01/28/18 11:21 01/28/18 11:21 01/28/18 11:21 Microbiology 01/27/18 17:48 Gastrointestinal Tract Panel (PCR) - Final Stool No Organism Detected Laboratory Results 01/27/18 14:15 01/28/18 04:08 01/27/18 01/28/18 01/29/18 05:59 05:59 05:59 Intake Total 650 Output Total 1000 Balance -350 General: well-appearing, alert, NAD Lungs: clear Cardiovascular: RRR Abdomen: soft, NT Extremities: no edema Neuro: speech fluent, some ongoing memory problems ICD10 Worksheet Patient Problems: Problems Problem Status Onset Syncope and collapse Acute Abdominal pain Acute Chronic renal failure Acute Hyperkalemia Acute
[2018-01-28] MEDS: D3 PO SCH (11:57)
[2018-01-28] MEDS: EPA PO SCH (11:57)
[2018-01-28] MEDS: FISH OIL PO SCH (11:57)
[2018-01-28] MEDS: DHA PO SCH (11:57)
[2018-01-28] MEDS: OMEGA PO SCH (11:57)
[2018-01-28] MEDS: [UNRECOGNIZED DRUG - OTHER] PO SCH (11:57)
--- NOTE | 2018-01-28 12:11 | ASMTCMCOM ---
CM Note CM Note Notes: 01/28/2018 Case Management Note Pt d/c cancelled yesterday d/t episodes of vomiting and diarrhea. Pt to resume dialysis on MWF. There are no case management d/c needs identified. Case Management d/c poc: home with supportive with . Pt to follow up as directed. Date Signed: 01/28/2018 12:10 PM Electronically Signed By:Jayde French RN
[2018-01-30] MEDS ORDERED: CINACALCET HCL 30 MG TAB PO SCH (18:00)
== END 2018-01-28 12:14 | disposition home or self-care (01) | DRG 312 ==
LOC: EDUNIT# → INTOOBSV 15:12 → F2W 16:55 → OBSVTOIN 01-27 13:27
PROVIDERS: ADMIT Internal Medicine; ATTEND Internal Medicine
DX: R55 Syncope and collapse (principal); E87.5 Hyperkalemia; I13.11 Hypertensive heart and chronic kidney disease without heart failure, with stage 5 chronic kidney disease, or end stage renal disease; N18.6 End stage renal disease; I25.10 Atherosclerotic heart disease of native coronary artery without angina pectoris; E03.9 Hypothyroidism, unspecified; M10.9 Gout, unspecified; Z95.0 Presence of cardiac pacemaker; Z99.2 Dependence on renal dialysis; Z66 Do not resuscitate; Z86.711 Personal history of pulmonary embolism; Z86.010 Personal history of colon polyps
CPT/HCPCS: 82435-PO; 82565-PO; 82947-PO; 84132-PO; 84295-PO; 84484-PO; 84520-PO; 85014-PO; G0378; J1650

== ENCOUNTER 2018-03-19 14:06 | Emergency (ER) | payer OTHER ==
--- NOTE | 2018-03-19 14:09 | EDPHY ---
H & P Time Seen by Provider: 03/19/18 14:09 HPI/ROS: CHIEF COMPLAINT: Syncope after dialysis HISTORY OF PRESENT ILLNESS: The patient presents to the ED via ambulance after he experienced a syncopal episode while eating lunch. The patient had just come from dialysis. A reportedly did a 3 kg removal. Patient had no antecedent chest pain, palpitations or shortness of breath. He denies any recent symptoms of fever, cough or congestion. He currently has no complaints of pain. He denies any focal neurologic complaints. He has had a history of presyncope and syncope following dialysis in the past. The patient does have a permanent pacemaker. REVIEW OF SYSTEMS: A comprehensive 10 point review of systems is otherwise negative aside from elements mentioned in the history of present illness. Source: Patient Exam Limitations: No limitations - Personal History Tetanus Vaccine Date: 2009 - Medical/Surgical History Hx Asthma: No Hx Chronic Respiratory Disease: No Hx Diabetes: No Hx Cardiac Disease: Yes Hx Renal Disease: Yes Hx Cirrhosis: No Hx Alcoholism: No Hx HIV/AIDS: No Hx Splenectomy or Spleen Trauma: No Other PMH: PMH/PSH: End Stage Renal Failure, pacemaker, left and right knee replacements, RFA fistula,HTN - Social History Smoking Status: Never smoked - Physical Exam Exam: General Appearance: Alert, no distress Eyes: Pupils equal and round no pallor or injection ENT, Mouth: Dry mucous membranes Respiratory: There are no retractions, lungs are clear to auscultation Cardiovascular: Regular rate and rhythm Gastrointestinal: Abdomen is soft and nontender, no masses, bowel sounds normal Neurological: 5/5 strength all 4 extremities Skin: Warm and dry, no rashes Musculoskeletal: Neck is supple nontender Extremities: symmetrical, full range of motion, dialysis fistula noted in right upper extremity Psychiatric: Patient is oriented X 3, there is no agitation Constitutional: Initial Vital Signs Temperature (C) 36.6 C 03/19/18 14:13 Heart Rate 79 03/19/18 14:13 Respiratory Rate 16 03/19/18 14:13 Blood Pressure 160/87 H 03/19/18 14:13 O2 Sat (%) 97 03/19/18 14:13 O2 Delivery Mode Room Air Allergies/Adverse Reactions: No Allergies [NKA] Allergy (Verified 03/19/18 14:12) Home Medications: Medication Instructions Recorded Aspirin EC [Aspirin EC 81 mg (*)] 81 mg PO DAILY 07/15/17 Atorvastatin Calcium [Lipitor 40 40 mg PO HS 07/15/17 mg (*)] Carboxymethylcellulose 1% [Refresh 1 justine EACHEYE PRN PRN 07/15/17 Celluvisc (*)] Carvedilol [Coreg (*)] 25 mg PO BIDMEAL 07/15/17 Cinacalcet HCl [Sensipar (*)] 30 mg PO TUTH@1800 07/15/17 Ezetimibe [Zetia 10 MG (*)] 10 mg PO DAILY 07/15/17 Folic Acid/Vit B Complex and C 1 each PO DAILY18 07/15/17 [Dialyvite Tablet] Levothyroxine [Synthroid 50 mcg 50 mcg PO DAILY06 07/15/17 (*)] Lisinopril [Zestril 40 mg (*)] 40 mg PO DAILY18 07/15/17 [place]-3S/Dha/Epa/Fish Oil/D3 2 each PO BIDMEAL 07/15/17 [[place]-3 + D Softgel] Polyethylene Glycol 3350 [Miralax 17 gm PO DAILY 07/15/17 17 gm (*)] Sevelamer Carbonate [Renvela] 3,200 mg PO TIDMEAL 07/15/17 Triamcinolone 0.1% [Triamcinolone 1 justine TP HS PRN 07/15/17 0.1% Cream (*)] amLODIPine BESYLATE [Norvasc 10 mg 10 mg PO DAILY PRN 07/15/17 (*)] amLODIPine BESYLATE [Norvasc 10 mg 10 mg PO DAILY PRN tab 01/27/18 (*)] Medical Decision Making - Diagnostics EKG Interpretation: EKG: Complete interpretation has been separately recorded in the [facility] archive. Summary impression: Av paced rhythm, rate 71 ED Course/Re-evaluation: The patient presents to the ED after a likely vasovagal episode following dialysis. The patient is in no acute distress. His pacemaker is functioning appropriately. He is not dehydrated. He has no significant anemia. He has no hyperkalemia. The patient was observed in the emergency department is ambulatory without acute complaints. At this point time I do feel he can be discharged home. Differential Diagnosis: Differential diagnosis considered includes arrhythmia, anemia, metabolic abnormality, pacemaker malfunction - Data Points Laboratory Results: Laboratory Results 03/19/18 14:06 07/30/18 14:06 03/19/18 03/19/18 14:06 14:06 WBC 4.17 10^3/uL 10^3/uL (3.80-9.50) RBC 3.76 10^6/uL L 10^6/uL (4.40-6.38) Hgb 12.5 g/dL L g/dL (13.7-17.5) Hct 35.9 % L % (40.0-51.0) MCV 95.5 fL fL (81.5-99.8) MCH 33.2 pg pg (27.9-34.1) MCHC 34.8 g/dL g/dL (32.4-36.7) RDW 13.4 % % (11.5-15.2) Plt Count 288 10^3/uL 10^3/uL (150-400) MPV 9.7 fL fL (8.7-11.7) Neut % (Auto) 60.7 % % (39.3-74.2) Lymph % (Auto) 15.1 % % (15.0-45.0) [place] % (Auto) 13.4 % H % (4.5-13.0) Eos % (Auto) 9.4 % H % (0.6-7.6) Baso % (Auto) 1.2 % % (0.3-1.7) Nucleat RBC Rel Count 0.0 % % (0.0-0.2) Absolute Neuts (auto) 2.53 10^3/uL 10^3/uL (1.70-6.50) Absolute Lymphs (auto) 0.63 10^3/uL L 10^3/uL (1.00-3.00) Absolute Monos (auto) 0.56 10^3/uL 10^3/uL (0.30-0.80) Absolute Eos (auto) 0.39 10^3/uL 10^3/uL (0.03-0.40) Absolute Basos (auto) 0.05 10^3/uL 10^3/uL (0.02-0.10) Absolute Nucleated RBC 0.00 10^3/uL 10^3/uL (0-0.01) Immature Gran % 0.2 % % (0.0-1.1) Immature Gran # 0.01 10^3/uL 10^3/uL (0.00-0.10) Sodium 134 mEq/L L mEq/L (135-145) Potassium 5.0 mEq/L mEq/L (3.3-5.0) Chloride 95 mEq/L L mEq/L (97-110) Carbon Dioxide 29 mEq/l mEq/l (22-31) Anion Gap 10 mEq/L mEq/L (8-16) BUN 25 mg/dL H mg/dL (7-23) Creatinine 5.1 mg/dL H mg/dL (0.7-1.3) Estimated GFR 11 Glucose 122 mg/dL H mg/dL (70-100) Calcium 9.3 mg/dL mg/dL (8.5-10.4) Specimen Hemolysis 112 Departure - Departure Disposition: Home, Routine, Self-Care Clinical Impression: Chronic renal failure, Syncope and collapse Condition: Good Instructions: Syncope (ED) Additional Instructions: 1. Follow up with dialysis as scheduled. 2. Return to the ED for any recurrent syncope or other concerns. Referrals: Patient,NotPresent [Unknown] - As per Instructions
[2018-03-19 14:29] LABS: PLATELET COUNT 288 10^3/uL (150-400)
--- NOTE | 2018-03-19 14:36 | CPEKG ---
Heart Rate: 67 RR Interval: 896 P-R Interval: 245 QRSD Interval: 152 QT Interval: 468 QTC Interval: 494 P [place]: 0 QRS [place]: 22 T Wave [place]: -45 EKG Severity - ABNORMAL ECG - EKG Impression: Av paced rhythm Electronically Signed By: Julio Cesar Brooks 19-Mar-2018 14:49:28
[2018-03-19 15:57] VITALS: BP 172/85
== END 2018-03-19 15:57 | disposition home or self-care (01) ==
LOC: EDUNIT#
DX: R55 Syncope and collapse (principal); N18.6 End stage renal disease; Z99.2 Dependence on renal dialysis

== ENCOUNTER 2018-11-21 10:29 | Observation (INO) | payer OTHER ==
[2018-11-21] MEDS ORDERED: NS 500 ML IV ONE (10:34)
--- NOTE | 2018-11-21 10:34 | EDPHY ---
HPI/HX/ROS/PE/MDM Narrative: CHIEF COMPLAINT: Blood in stool and emesis, confusion HPI: This patient is an 88 year old male with complex past medical history including hypertension, end stage renal disease (on dialysis), and coronary artery disease. He arrives today via EMS from [facility] dialysis. [place] through his dialysis treatment today, he became confused and "groggy", which is unusual for him. Staff at [facility] called for EMS. Dialysis staff noted his blood pressure was 124/90 and gave fluids. On EMS arrival, patent's BGL was 100, vitals stable. The patient endorses hematemesis and tarry black stools for the past several days. REVIEW OF SYSTEMS: A comprehensive 10 system review of systems is otherwise negative aside from elements mentioned in the history of present illness and medical decision making. PMH: 1. ESRD (dialysis, on sevelamer carbonate) 2. Hyperlipidemia (Atorvastatin, Zetia) 3. Hypertension (Lisinopril, carvedilol, amlodipine prn) 4. Coronary artery disease (ASA, cinacalcet) 5. History of prostate cancer 6. Pacemaker placed 2009 7. Hypothyroidism (Levothyroxine) 8. History of PE 9. Gout 10. Dupuytren's contracture 11. Colon polyps Past medical records reviewed including admission 01/26/18 for confusion and syncope during dialysis. SOCIAL HISTORY: PHYSICAL EXAM: General:Patient is alert, in no acute distress. ENT:Eyes are normal to inspection. ENT inspection normal. Neck: Normal inspection. Full range of motion. Respiratory:No respiratory distress. Breath sounds normal bilaterally. Cardiovascular: Regular rate and rhythm. Strong peripheral pulses. Normal cap refill. Abdomen:The abdomen is nontender to palpation. There are no peritoneal signs. There are normal bowel sounds. Back: Normal to inspection. No tenderness to palpation. Skin: Normal color. No rash. Warm and dry. Extremities: Fistula in place on right arm. Normal appearance. Full range of motion. Neuro: Oriented x3. Normal motor function. Normal sensory function. ED Course: 10:30 Met EMS on arrival 88 y/o male presents with confusion following several days of hematemesis and melena. Plan for EKG, labs including CBC, chemistries, troponin, co-ag panel. EKG was ordered and interpreted by myself. Please see [place] system for official reading. H&H low at 5.7 and 16.9 respectively. Plan to admit. Plan for type and screen, ordered packed red cells per protocol. 12:00 Spoke with hospitalist service. Discussed placement for this patient given his DNR status. He will need a blood transfusion. Hospitalist service states med/surg will be sufficient for this patient. Dr. Mims accepts admission. Plan to consult with gastroenterology. 12:22 Dr. Nicholson, corporate secretary, is in the emergency department will evaluate the patient. - Data Points Laboratory Results: Laboratory Results 11/21/18 11:30 11/21/18 11:30 11/21/18 11/21/18 11/21/18 11:43 11:30 11:30 WBC RBC Hgb Hct MCV MCH MCHC RDW Plt Count MPV Neut % (Auto) Lymph % (Auto) [place] % (Auto) Eos % (Auto) Baso % (Auto) Nucleat RBC Rel Count Absolute Neuts (auto) Absolute Lymphs (auto) Absolute Monos (auto) Absolute Eos (auto) Absolute Basos (auto) Absolute Nucleated RBC Immature Gran % Immature Gran # Platelet Estimate Smear Review By PT INR APTT Sodium 135 mEq/L mEq/L (135-145) Potassium 4.5 mEq/L mEq/L (3.5-5.2) Chloride 98 mEq/L mEq/L (97-110) Carbon Dioxide 22 mEq/l mEq/l (22-31) Anion Gap 15 mEq/L H mEq/L (6-14) BUN 93 mg/dL H mg/dL (7-23) Creatinine 4.9 mg/dL H mg/dL (0.7-1.3) Estimated GFR 11 Glucose 65 mg/dL L mg/dL (70-100) Calcium 8.6 mg/dL mg/dL (8.5-10.4) POC Troponin I 0.02 ng/mL ng/mL (0.00-0.08) Patient ABO/Rh Pending Antibody Screen Pending Crossmatch IS Only See Detail 11/21/18 11/21/18 11:30 11:30 WBC 4.60 10^3/uL 10^3/uL (3.80-9.50) RBC 1.83 10^6/uL L 10^6/uL (4.40-6.38) Hgb 5.7 g/dL L* g/dL (13.7-17.5) Hct 16.9 % L* % (40.0-51.0) MCV 92.3 fL fL (81.5-99.8) MCH 31.1 pg pg (27.9-34.1) MCHC 33.7 g/dL g/dL (32.4-36.7) RDW 15.7 % H % (11.5-15.2) Plt Count 174 10^3/uL 10^3/uL (150-400) MPV 10.2 fL fL (8.7-11.7) Neut % (Auto) 76.5 % H % (39.3-74.2) Lymph % (Auto) 9.3 % L % (15.0-45.0) [place] % (Auto) 11.1 % % (4.5-13.0) Eos % (Auto) 2.0 % % (0.6-7.6) Baso % (Auto) 0.7 % % (0.3-1.7) Nucleat RBC Rel Count 0.0 % % (0.0-0.2) Absolute Neuts (auto) 3.52 10^3/uL 10^3/uL (1.70-6.50) Absolute Lymphs (auto) 0.43 10^3/uL L 10^3/uL (1.00-3.00) Absolute Monos (auto) 0.51 10^3/uL 10^3/uL (0.30-0.80) Absolute Eos (auto) 0.09 10^3/uL 10^3/uL (0.03-0.40) Absolute Basos (auto) 0.03 10^3/uL 10^3/uL (0.02-0.10) Absolute Nucleated RBC 0.00 10^3/uL 10^3/uL (0-0.01) Immature Gran % 0.4 % % (0.0-1.1) Immature Gran # 0.02 10^3/uL 10^3/uL (0.00-0.10) Platelet Estimate Pending Smear Review By Pending PT 15.3 SEC H SEC (12.0-15.0) INR 1.26 H (0.83-1.16) APTT 26.7 SEC SEC (23.0-38.0) Sodium Potassium Chloride Carbon Dioxide Anion Gap BUN Creatinine Estimated GFR Glucose Calcium POC Troponin I Patient ABO/Rh Antibody Screen Crossmatch IS Only Medications Given: Discontinued Medications Sodium Chloride (Ns) 500 mls @ 0 mls/hr IV EDNOW ONE; Wide Open PRN Reason: Protocol Stop: 11/21/18 10:35 Last Admin: 11/21/18 11:40 Dose: Not Given Sodium Chloride (Ns) 250 mls @ 0 mls/hr IV EDNOW ONE; Wide Open PRN Reason: Protocol Stop: 11/21/18 11:42 Last Admin: 11/21/18 11:43 Dose: 250 mls Point of Care Test Results: Chemistry 11/21/18 11:43 POC Troponin I 0.02 ng/mL ng/mL (0.00-0.08) General Initial Vital Signs: Initial Vital Signs Temperature (C) 36.7 C 11/21/18 10:40 Heart Rate 73 11/21/18 10:40 Respiratory Rate 18 11/21/18 10:40 Blood Pressure 159/68 H 11/21/18 10:40 O2 Sat (%) 95 11/21/18 10:40 O2 Delivery Mode Room Air Allergies/Adverse Reactions: No Allergies [NKA] Allergy (Verified 03/19/18 14:12) Home Medications: Medication Instructions Recorded Aspirin EC [Aspirin EC 81 mg (*)] 81 mg PO DAILY 07/15/17 Atorvastatin Calcium [Lipitor 40 40 mg PO HS 07/15/17 mg (*)] Carboxymethylcellulose 1% [Refresh 1 justine EACHEYE PRN PRN 07/15/17 Celluvisc (*)] Carvedilol [Coreg (*)] 25 mg PO BIDMEAL 07/15/17 Cinacalcet HCl [Sensipar (*)] 30 mg PO TUTH@1800 07/15/17 Ezetimibe [Zetia 10 MG (*)] 10 mg PO DAILY 07/15/17 Folic Acid/Vit B Complex and C 1 each PO DAILY18 07/15/17 [Dialyvite Tablet] Levothyroxine [Synthroid 50 mcg 50 mcg PO DAILY06 07/15/17 (*)] Lisinopril [Zestril 40 mg (*)] 40 mg PO DAILY18 07/15/17 [place]-3S/Dha/Epa/Fish Oil/D3 2 each PO BIDMEAL 07/15/17 [[place]-3 + D Softgel] Polyethylene Glycol 3350 [Miralax 17 gm PO DAILY 07/15/17 17 gm (*)] Sevelamer Carbonate [Renvela] 3,200 mg PO TIDMEAL 07/15/17 Triamcinolone 0.1% [Triamcinolone 1 justine TP HS PRN 07/15/17 0.1% Cream (*)] amLODIPine BESYLATE [Norvasc 10 mg 10 mg PO DAILY PRN 07/15/17 (*)] amLODIPine BESYLATE [Norvasc 10 mg 10 mg PO DAILY PRN tab 01/27/18 (*)] Departure - Departure Disposition: [facility] Inpatient Acute Clinical Impression: GI bleed Condition: Serious Report Scribed for: Santhosh Torres Report Scribed by: Delmy Horn Date of Report: 11/21/18 Time of Report: 10:46 Physician Review and Approval Statement: Portions of this note were transcribed by an ED scribe. I personally performed the history, physical exam, and medical decision making; and confirm the accuracy of the information in the transcribed note.
--- NOTE | 2018-11-21 10:49 | CPEKG ---
Test Reason : OPEN Blood Pressure : / mmHG Vent. Rate : 070 BPM Atrial Rate : 070 BPM P-R Int : 231 ms QRS Dur : 153 ms QT Int : 480 ms P-R-T Axes : 064 027 -33 degrees QTc Int : 519 ms Sinus rhythm Prolonged LA interval Right bundle branch block Confirmed by Santhosh Torres ([id number]) on 11/21/2018 10:48:42 AM Referred By: Santhosh Torres Confirmed By:Santhosh Torres
[2018-11-21] MEDS ORDERED: NS 250 ML IV ONE (11:41)
[2018-11-21 11:53] LABS: PLATELET COUNT 174 10^3/uL (150-400)
[2018-11-21 12:01] LABS: INR 1.26 (0.83-1.16); PROTIME(PATIENT) 15.3 SEC (12.0-15.0)
[2018-11-21] MEDS ORDERED: ACETAMINOPHEN 325 MG TAB PO PRN (12:18)
[2018-11-21] MEDS ORDERED: ONDANSETRON DISINTEGRATING 4 MG TAB PO PRN (12:18)
[2018-11-21] MEDS ORDERED: ONDANSETRON 4 MG/2 ML VIAL IVP PRN (12:18)
--- NOTE | 2018-11-21 13:06 | PDCONSULT ---
Activity Therapy Specialist Note: I was notified by ED the pt is under Dr. Latanya Huertas. I contacted her and she will evaluate the pt later today. She is aware of pt's admission and has requested all current orders remain. For any further questions or concerns, please contact Dr. Huertas. Thank you.
--- NOTE | 2018-11-21 15:13 | GCON ---
[f rep st] CONSULTATION DATE OF CONSULTATION: 11/21/2018 REASON FOR CONSULTATION: Opinion regarding end-stage kidney failure. HISTORY OF PRESENT ILLNESS: The patient is a very pleasant 88-year-old gentleman who has been on hem odialysis for 7 years and has been doing quite well. He dialyzes via a right wrist [place] AV fistula . Monday after dialysis he began passing blood in his stool, continued on Monday and this morning w as vomiting coffee-ground black emesis as well as passing blood in his stool. He went to dialysis, h e received 2-1/2 to 3 hours of dialysis before coming off and heading to the emergency department, an d he was not on heparin during his dialysis treatment today. Generally speaking, Kyaw has been feeling well. He has not been having fevers, chills. Does have nausea, vomiting, melena. No hematochezia. No blurry vision, double vision, headache, orthopnea, paroxysmal nocturnal dyspnea, palpitations, syncope, chest pain, shortness of breath. He does not ma ke any urine. PAST MEDICAL HISTORY: Significant for: 1. 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 2. Hypertension. 3. Hyperlipidemia. 4. Hypothyroidism. 5. Anemia of chronic kidney disease. 6. Secondary hyperparathyroidism. 7. Status post right nephrectomy. ALLERGIES: None. MEDICATIONS: Include: 1. Amlodipine 10 mg a day. 2. Aspirin 81 mg a day. 3. Lipitor 40 mg daily. 4. Coreg 25 mg twice daily. 5. Sensipar 30 mg on Tuesdays, , and Saturdays. 6. Zetia 10 mg daily. 7. Synthroid 50 mcg daily. 8. Multiple vitamin daily. 9. Lisinopril 40 mg daily. 10. Fish oil 1 g daily. 11. Renagel 800 mg 3 times a day with meals. 12. MiraLAX as needed. FAMILY HISTORY: Negative for renal failure. SOCIAL HISTORY: He is . 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 Does not use tobacco, alcohol, IV or recreational drugs. REVIEW OF SYSTEMS: A complete 12-point review of systems was performed with pertinent positives and negatives as per the previous sections. PHYSICAL EXAMINATION: VITAL SIGNS: Blood pressure 148/62, pulse 81, respirations 18, temperature 36 .7 degrees. He weighs 91 kg. GENERAL: He is awake, alert, cooperative and is in no acute distress. HEENT: Pupils are reactive to light. Extraocular movements are intact. Mucous membranes are mois t. NECK: No lymphadenopathy or thyromegaly. HEART: Regular grade 1/6 systolic murmur. No rub. N o S3. LUNGS: No rales, rhonchi, or wheezes. ABDOMEN: Bowel sounds are positive. Soft, nontender, nondistended. EXTREMITIES: Trace edema. No cyanosis or clubbing. NEUROLOGIC: No asterixis. SKI N: Changes of arterial insufficiency in his lower extremities bilaterally. LYMPH: No palpable lymp hadenopathy or lymphedema. MUSCULOSKELETAL: No effusions or tenderness. He has a right wrist [place] o AV fistula with a good bruit and thrill. LABORATORY: WBC 4.6, hemoglobin 5.7, hematocrit 16.9, platelet count 174,000. INR of 1.26, PTT of 2 6.7. Serum sodium 135, potassium 4.5, chloride 98, CO2 22, BUN 93, creatinine 4.9, glucose 65, calci um 8.6. Troponin 0.02. IMPRESSION: 1. 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 2. Upper gastrointestinal bleed with hematemesis and melena. 3. Anemia of blood loss as well as anemia of chronic kidney disease. 4. The patient did have about 2-1/2 or 3 hours of dialysis today. 5. Receiving 2 units of packed red blood cells this afternoon. 6. I have called the acute dialysis unit for hemodialysis today. There are multiple emergencies thi s afternoon, we will try to get to the patient as soon as is possible. Otherwise, we will plan on do ing dialysis tomorrow. All questions were answered to the patient's and his 's satisfaction, his was present during the entire interview. Thank you for allowing me to participate in the care of your patient. If there are any questions, pl ease do not hesitate to contact us and we will be following along with you. /[id number]/MODL
[2018-11-21 16:55] LABS: HEPATITIS B SURFACE ANTIGEN NEGATIVE (NEGATIVE)
[2018-11-21 17:12] LABS: HEPATITIS B CORE AB TOTAL NEGATIVE (NEGATIVE); HEPATITIS C ANTIBODY TOTAL NEGATIVE (NEGATIVE)
--- NOTE | 2018-11-21 17:35 | SOAPPROG ---
SOAP Progress Note Assessment/Plan: Assessment: Plan: 11/21/18 17:48 GI bleed: Likely upper GI bleed, possibly secondary to aspirin use. Significant anemia. Baseline H/H due to chronic kidney disease not available at this time. Receiving unit of blood now, and anticipate receiving another unit during dialysis later tonight. EGD planned for tomorrow. Appreciate GI input. ESRD: on dialysis. Has been seen by nephrology. Hope to go to dialysis tonight. Appreciate nephrology input. Hypertension: BP elevated so will continue his BP meds CAD: significantly elevated coronary calcium score of 3040 in 08/07. Rate of progression 9%, so stable disease. No c/o chest pain. Hypothyroid: on replacement and will continue Hyperlipidemia: on atorvastatin, Lovaza, Zetia DVT prophylaxis: CAN valenzuela Dispo: pt admitted to inpatient status as expect >2 MN due to GI bleeding, need for stabilization prior to d/c. 11/21/18 17:54 11/21/18 17:59 11/21/18 18:11 Subjective: 88 yo male with hx CAD, htn, ESRD on dialysis who was about 1/2 way through dialysis today when he began to feel confused and groggy which is not usual for him. He was given fluids at dialysis and sent by ambulance to ER. His H/H was noted to be 5.7/16.9. BP was ok. He reports that he began noticing tarry stools very early Monday morning. He had multiple black stools yesterday, and has had fewer today. This morning he felt nauseated and had a small volume emesis tinged with blood. He's not had any abdominal pain, chest pain or pressure, SOB. He was seen in the ER by Dr. Nicholson, and is being admitted for GI bleeding. Objective: Vital Signs Temp Pulse Resp BP Pulse Ox 36.6 C 76 16 152/54 H 95 11/21/18 13:15 11/21/18 14:24 11/21/18 14:24 11/21/18 14:24 11/21/18 14:24 PT 15.3 SEC (12.0-15.0) H 11/21/18 11:30 INR 1.26 (0.83-1.16) H 11/21/18 11:30 General: well-appearing, alert, pleasant HEENT: PERRL, EOMI. O/p moist. Neck: supple, no masses, adenopathy. No thyromegaly, tenderness, carotid bruits Lungs: clear bilaterally Cardiovascular: RRR without murmur. Dialysis fistula R arm. Abdomen: +bowel sounds, soft, NT. No hepatosplenomegaly, masses Extremities: minimal BLE edema. Skin: healing spots on face from recent cryotherapy for AKs Neurologic: awake, Marsha, no confusion Psychiatric: normal mood, affect. No agitation ICD10 Worksheet Patient Problems: Problems Problem Status Onset GI bleed Acute Abdominal pain Acute Chronic renal failure Acute Hyperkalemia Acute
[2018-11-21] MEDS ORDERED: VIT B COMPLEX AND C PO SCH (18:00)
[2018-11-21] MEDS ORDERED: ATORVASTATIN CALCIUM 40 MG TAB PO SCH (18:00)
[2018-11-21] MEDS ORDERED: FOLIC ACID PO SCH (18:00)
[2018-11-21] MEDS ORDERED: LISINOPRIL 40 MG TAB PO SCH (18:00)
[2018-11-21] MEDS: CARVEDILOL 25 MG TAB PO SCH (18:27)
[2018-11-21] MEDS: SEVELAMER CARBONATE 3200 MG PO SCH (18:40)
--- NOTE | 2018-11-21 19:09 | GHP ---
[f rep st] HISTORY AND PHYSICAL DATE OF ADMISSION: 11/21/2018 HISTORY OF PRESENT ILLNESS: The patient is an 88-year-old male with a history of coronary artery disease, hypertension, and end-stage renal disease on dialysis, who was about fci through dialysis today when he began to feel confused and groggy, which is not usual for him. He was given fluids at dialysis and sent by ambulance to the emergency department. His hemoglobin and hematocrit were noted to be 5.7/6.9, blood pressure was okay. He reports that he began noticing tarry stools very early Monday morning. He had multiple black stools yesterday and has had fewer today. This morning, he felt nauseated and had small volume emesis tinged with blood. He has not had any abdominal pain, chest pain or pressure, or shortness of breath. He was seen in the emergency department by Dr. Nicholson and is currently being admitted for GI bleeding. PAST MEDICAL HISTORY: Colon polyps, chronic renal insufficiency on dialysis, Dupuytren's contractures, secondary hyperparathyroidism, gout, high cholesterol , hypertension, pulmonary embolism after extensive travel, coronary artery disease, renal carcinoma, basal cell carcinoma, prostate cancer status post seeding, pacemaker placement. MEDICATIONS: [place]-3 fatty acids, aspirin 81 mg daily, MiraLAX 1 packet daily, triamcinolone 0.025% cream twice daily as needed, Zetia 10 mg daily, Lovaza 1 g two capsules twice daily, atorvastatin 40 mg daily, carvedilol 25 mg twice daily , amlodipine 10 mg daily, Sensipar 30 mg one tablet after meal with food daily on Tuesdays and , Renvela 800 mg four tablets with meals 3 times daily , Tylenol a total of 2 g per day, levothyroxine 50 mcg daily, lisinopril 40 mg daily. ALLERGIES: None. SURGICAL HISTORY: Right nephrectomy. SOCIAL HISTORY: The patient is . He holds a PhD, is retired. He is a nonsmoker. FAMILY HISTORY: His father at the age of 86 from hypertension. His mother at 55 from a cerebral aneurysm, she was also hypertensive and obese. REVIEW OF SYSTEMS: GENERAL: No fever or chills. Did note sweating this morning. HEENT: Frequent nasal drainage. No sinus pain or pressure. RESPIRATORY: No shortness of breath. Notes an occasional cough. CARDIOVASCULAR: No chest pain, pressure, or heaviness. Mild lower extremity edema. GASTROINTESTINAL: As per HPI. In addition, no heartburn, though does note occasional dysphagia. GENITOURINARY: Patient does not urinate. MUSCULOSKELETAL: Right upper arm pain and neck pain. SKIN: No rashes. Recent treatment for actinic keratoses. NEUROLOGIC: Confusion this morning as per HPI. Also states that he is having a little trouble finding his thoughts. In general, he is not confused. No numbness, weakness, or tingling. PSYCHIATRIC: He feels low at times, but in general denies depression or anxiety. PHYSICAL EXAMINATION: VITAL SIGNS: Blood pressure 144/73, heart rate 75, respiratory rate 18, O2 saturation 94% on room air, temperature 36.7. GENERAL: He is well appearing, alert, and pleasant. No acute distress HEENT pupils are equal, round, and reactive to light. Extraocular movements are intact. Oropharynx is moist. NECK: Supple without masses or adenopathy. No thyromegaly, tenderness, or carotid bruits. LUNGS: Clear bilaterally. CARDIOVASCULAR: Regular rate and rhythm without murmur. Dialysis fistula noted in right arm. ABDOMEN: Positive bowel sounds. Soft and nontender. No hepatosplenomegaly or masses. EXTREMITIES: Minimal bilateral lower extremity edema. SKIN: Healing spots on face from recent cryotherapy. NEUROLOGIC: Awake. Moving all extremities. No confusion. PSYCHIATRIC: Normal mood and affect. No agitation. ASSESSMENT AND PLAN: 1. Gastrointestinal bleed, likely upper gastrointestinal bleed, possibly secondary to aspirin use. 2. Significant anemia. Baseline H and H due to chronic kidney disease, not available at this time, receiving a unit of blood now and anticipate receiving another unit during dialysis later tonight. Esophagogastroduodenoscopy planned for tomorrow morning. Appreciate GI input. 3. End-stage renal disease, on dialysis. He has been seen by Nephrology and hopes to go to dialysis tonight. Appreciate Nephrology input. 4. Hypertension. Blood pressure elevated, so will continue his blood pressure medications. 5. Coronary artery disease. Significantly elevated coronary calcium score of 3040 in 07/2018, rate of progression 9%, so stable disease. No complaints of chest pain. 6. Hypothyroid. On replacement and will continue. 7. Hyperlipidemia. On atorvastatin, Lovaza, and Zetia. 8. Deep venous thrombosis prophylaxis. Will add support hose, anticoagulation not appropriate. DISPOSITION: Inpatient admission. Anticipate at least 2 midnights to make sure that GI bleeding has resolved. /[id number]/MODL MTDD
--- NOTE | 2018-11-21 20:09 | GCON ---
[f rep st] CONSULTATION REFERRING PHYSICIAN: Dr. Morrison CHIEF COMPLAINT: 88-year-old gentleman with hematemesis and melena. HISTORY OF PRESENT ILLNESS: I have been asked to see this very pleasant 88-year -old gentleman in consultation by Dr. Morrison for evaluation of hematemesis and melena. Patient has a history of end-stage renal disease on dialysis. He has had a previous right nephrectomy for renal cell carcinoma. He has been on hemodialysis since 2011. He also has a history of hypertension and a previous pacemaker placement. He went to dialysis on Monday without problems. On Monday, he had episode of black stool. This morning, he had an episode of emesis and felt nauseous. He did go to dialysis and did have dialysis for 2 hours. After evaluation at dialysis, they sent him over to the emergency department. He was hemodynamically stable; however, in the ER, he had a hemoglobin of 5.7 and hematocrit 16.9. His PT was 15.3 with an INR of 1.26. Serum chemistries did reveal an elevated BUN of 93 with a creatinine 4.9 with normal serum sodium 135, potassium 4.0. He has no prior history of GI bleeding or ulcer disease. He does not have any history of NSAID use. He does take Tylenol. He denies any abdominal pain or discomfort. He also denies any history of heartburn or reflux. In the emergency department, he was hemodynamically stable with a blood pressure of 147/62 with a pulse of 78, and respiratory rate 18. Asked to see patient for further evaluation. PAST MEDICAL HISTORY: Remarkable for end-stage renal disease, hyperlipidemia, hypertension, coronary artery disease, history of prostate cancer status post seed implants, pacemaker placed 2009, hypothyroidism, prior history of pulmonary embolus, gout, Dupuytren contracture, and previous colon polyps. SOCIAL HISTORY: Negative. Nondrinker, nonsmoker. FAMILY HISTORY: Noncontributory as it pertains to chief complaint. ALLERGIES: He has no known drug allergies. MEDICATIONS PRIOR TO ADMISSION: Folic acid, Sensipar, MiraLAX, Zetia, atorvastatin, Renvela, lisinopril, levothyroxine, Coreg, aspirin, omega fatty acids, and amlodipine 10 mg daily. REVIEW OF SYSTEMS: Negative 10 systems other than as mentioned in HPI. PHYSICAL EXAM: VITAL SIGNS: 147/62, heart rate of 78, respiratory rate 18, 96 % sat, 37.7. GENERAL: Very pleasant gentleman lying in bed in no acute distress. HEENT: Normocephalic, atraumatic. EOMI. NECK: Supple. No cervical adenopathy. No thyromegaly. Mucous membranes moist. LUNGS: Clear. CARDIAC: Normal S1, S2 without murmur. ABDOMEN: Benign, soft. No hepatosplenomegaly. Nontender. EXTREMITIES: With venous stasis changes and trace edema. No clubbing or cyanosis. SKIN: Warm, dry, intact. NEURO: Nonfocal. PSYCH: Alert and orientated x3 with normal affect. LABS: As above. IMPRESSION: 88-year-old gentleman with end-stage renal disease on dialysis. Patient with gastrointestinal bleed. Differential diagnosis includes gastritis , peptic ulcer disease, esophagitis, malignancy. RECOMMENDATIONS: 1. Transfuse packed red blood cells. 2. IV Protonix. 3. NPO 4. Proceed with urgent endoscopy. 5. Serial H and H Will follow with you. Thank you for allowing me to participate in the care of this patient. /[id number]/MODL MTDD
[2018-11-22] MEDS: PANTOPRAZOLE SODIUM 40 MG VIAL IVP SCH ×2 (00:12→09:42)
[2018-11-22 01:41] LABS: PLATELET COUNT 163 10^3/uL (150-400)
[2018-11-22] MEDS ORDERED: LEVOTHYROXINE 50 MCG TAB PO SCH (06:00)
[2018-11-22] MEDS ORDERED: LR 1,000 ML IV ONE (07:10)
[2018-11-22] MEDS ORDERED: NS 1,000 ML IV ONE (07:12)
--- NOTE | 2018-11-22 07:50 | PDANEPAE ---
ANE History of Present Illness EGD with anesthesia for GIB ANE Past Medical History - Cardiovascular History Hx Hypertension: Yes Hx Arrhythmias: Yes Hx Chest Pain: No Hx Coronary Artery / Peripheral Vascular Disease: Yes Hx CHF / Valvular Disease: No Hx Palpitations: No - Pulmonary History Hx Oxygen in Use at Home: No Hx Sleep Apnea: No Sleep Apnea Screening Result - Last Documented: Positive - Neurologic History Hx Cerebrovascular Accident: No Hx Seizures: No Hx Dementia: No - Endocrine History Hx Diabetes: No Endocrine History Comment: Hypothyroid - Renal History Hx Renal Disorders: Yes Renal History Comment: renal CA, Nephrectomy. On Dialysis 3 days a week - Liver History Hx Hepatic Disorders: No - Neurological & Psychiatric Hx Hx Neurological and Psychiatric Disorders: No - Cancer History Hx Cancer: Yes Cancer History Comment: renal CA and Prostrate CA - Congenital Disorder History Hx Congenital Disorders: No - GI History Hx Gastrointestinal Disorders: No - Other Health History Other Health History: catarract sugery - Chronic Pain History Chronic Pain: Yes (neck and shoulders) - Surgical History Prior Surgeries: Nephrectomy,bilat.Knee replacements, Pacemaker insertion. colonoscopy, Right and left arm AV fistulas the right being the most recent , Catarract removal bilateral ANE Review of Systems Review of Systems: - Pacemaker Pacemaker Computer Technology Teacher: [employer] Date Pacemaker Last Checked: has bedside transmission device that uploads nightly ANE Patient History - Allergies Allergies/Adverse Reactions: No Allergies [NKA] Allergy (Verified 03/19/18 14:12) - Home Medications Home Medications: Aspirin EC [Aspirin EC 81 mg (*)] 81 mg PO DAILY 07/15/17 [Last Taken 11/21/18] Atorvastatin Calcium [Lipitor 40 mg (*)] 40 mg PO DAILY18 07/15/17 [Last Taken 11/20/18] Carvedilol [Coreg (*)] 25 mg PO BIDMEAL 07/15/17 [Last Taken 11/21/18] Cinacalcet HCl [Sensipar (*)] 30 mg PO TUTHSA@1800 07/15/17 [Last Taken 11/20/18 ] Ezetimibe [Zetia 10 MG (*)] 10 mg PO DAILY 07/15/17 [Last Taken 11/21/18] Folic Acid/Vit B Complex and C [Dialyvite Tablet] 1 each PO DAILY18 07/15/17 [ Last Taken 11/20/18] Levothyroxine [Synthroid 50 mcg (*)] 50 mcg PO DAILY06 07/15/17 [Last Taken 11/06] Lisinopril [Zestril 40 mg (*)] 40 mg PO DAILY18 07/15/17 [Last Taken 11/20/18] Polyethylene Glycol 3350 [Miralax 17 gm (*)] 17 gm PO DAILY 07/15/17 [Last Taken 11/21/18] Sevelamer Carbonate [Renvela] 3,200 mg PO TIDMEAL 07/15/17 [Last Taken 11/21/18] [place]-3 Fatty Acids [Fish Oil 1000 mg (*)] 1,000 mg PO DAILY 11/21/18 [Last Taken 11/21/18] amLODIPine BESYLATE [Norvasc 10 mg (*)] 10 mg PO DAILY18 11/21/18 [Last Taken ] - NPO status NPO Since - Liquids (Date): 11/21/18 NPO Since - Liquids (Time): 22:30 NPO Since - Solids (Date): 11/21/18 NPO Since - Solids (Time): 18:00 - Smoking Hx Smoking Status: Never smoked ANE Labs/Vital Signs - Labs Result Diagrams: 11/22/18 01:30 11/22/18 01:30 - Vital Signs Blood Pressure: 159/85 Heart Rate: 75 Respiratory Rate: 21 O2 Sat (%): 92 Height: 187.96 cm Weight: 89.358 kg ANE Physical Exam - Airway Neck exam: decreased ROM Mallampati Score: Class 4 Mouth exam: normal dental/mouth exam - Pulmonary Pulmonary: no respiratory distress, no rales or rhonchi - Cardiovascular Cardiovascular: regular rate and rhythym, no murmur, rub, or gallop - ASA Status ASA Status: IV ANE Anesthesia Plan Anesthesia Plan: GA with mask Total IV Anesthesia: Yes
[2018-11-22] MEDS ORDERED: LIDOCAINE 2% 100 MG/5 ML SYR ONE (07:53)
[2018-11-22] MEDS ORDERED: fentaNYL 100 MCG/2 ML INJ ONE (07:53)
[2018-11-22] MEDS ORDERED: PROPOFOL 200 MG/20 ML VIAL ONE (07:54)
[2018-11-22] MEDS ORDERED: NALOXONE HCL 0.4 MG/ML INJ IVP PRN (08:19)
[2018-11-22] MEDS ORDERED: MEPERIDINE 25 MG/0.5 ML AMP IVP PRN (08:19)
[2018-11-22] MEDS ORDERED: fentaNYL 100 MCG/2 ML INJ IVP PRN (08:19)
--- NOTE | 2018-11-22 08:29 | GIREPORT ---
[facility] - Endoscopy Department Patient Name: Kyaw Neal Procedure Date: 11/22/2018 7:50 AM Patient Type: Inpatient Attending MD/ ER Physician: Hernan Nicholson MD Procedure: Upper GI endoscopy Indications: Acute post hemorrhagic anemia, Melena Providers: Hernan Nicholson MD Medicines: Propofol per Anesthesia Complications: No immediate complications. Description of Procedure: After obtaining informed consent, the endoscope was passed under direct vision. Throughout the procedure, the patient's blood pressure, pulse, and oxygen saturations were monitored continuously. The Endoscope was intro duced through the mouth, and advanced to the second part of duodenum. The [facility] er GI endoscopy was accomplished without difficulty. The patient tolerated th e procedure well. Findings: The examined esophagus was normal. One non-bleeding cratered gastric ulcer with no stigmata of bleeding wa s found in the gastric antrum. The lesion was 9 mm in largest dimension. Biopsies were taken with a cold forceps for histology. Diffuse moderate inflammation characterized by congestion (edema) and erythema was found in the gastric fundus. The examined duodenum was normal. One 3 mm sessile polyp was found in the second portion of the duodenum. The polyp was removed with a cold biopsy forceps. Resection and retrieval w ere complete. Estimated Blood Loss: Estimated blood loss: none. Post Op Diagnosis: - Normal esophagus. - Non-bleeding gastric ulcer with no stigmata of bleeding. Biopsied. - Gastritis. - Normal examined duodenum. - One duodenal polyp. Resected and retrieved. Recommendation: - Advance diet as tolerated. - Use Protonix (pantoprazole) 40 mg PO BID. - Repeat upper endoscopy in 8 weeks to check healing. - Thank you for allowing me to participate in the care of your patient. Attending Participation: I personally performed the entire procedure. Hernan Nicholson MD Hernan Nicholson MD 11/22/2018 8:28:41 AM This report has been signed electronicallyStfreddy Nicholson MD Number of Addenda: 0 Note Initiated On: 11/22/2018 7:50 AM [email or web address]}
--- NOTE | 2018-11-22 08:32 | POSTANESTH ---
Post Anesthetic Evaluation Cardiovascular Status: Normal, Stable Respiratory Status: Normal, Stable Level of Consciousness/Mental Status: Can Participate in Eval, Mildly Sleepy, Arousable Pain Control: Adequate, Prn Tx Ordered Nausea/Vomiting Control: Adequate, Prn Tx Ordered Complications Possibly Related to Anesthesia: None Noted
[2018-11-22] MEDS ORDERED: OMEGA-3 FATTY ACIDS 1,000 MG CAP PO SCH (09:00)
[2018-11-22] MEDS ORDERED: POLYETHYLENE GLYCOL 3350 17 GM PKT PO SCH (09:00)
[2018-11-22] MEDS ORDERED: EZETIMIBE 10 MG TAB PO SCH (09:00)
--- NOTE | 2018-11-22 09:04 | SOAPPROG ---
SONICKY Progress Note Assessment/Plan: Assessment: Plan: 11/22/18 09:02 GIB--likely due to gastric ulcer, appreciate GI consult. Will return to find patient later. 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 ESRD--appreciate renal consult and order anemia--follow Hgb HTN with known profound orthostatis, keep supine BP higher (160 is typical) Subjective: Reports reviewed with spouse. Patient in post op UGI recovery. Gastric ulcer seen. Not actively bleeding at this point Objective: Vital Signs Temp Pulse Resp BP Pulse Ox 36.5 C 75 21 H 164/74 H 97 11/22/18 08:34 11/22/18 07:50 11/22/18 08:46 11/22/18 08:46 11/22/18 08:46 Laboratory Results 11/22/18 01:30 11/22/18 01:30 11/21/18 11/22/18 11/23/18 05:59 05:59 05:59 Intake Total 370 100 Balance 370 100 PT 15.3 SEC (12.0-15.0) H 11/21/18 11:30 INR 1.26 (0.83-1.16) H 11/21/18 11:30 VSS, Hgb improved after transfusion ICD10 Worksheet Patient Problems: Problems Problem Status Onset GI bleed Acute Abdominal pain Acute Chronic renal failure Acute Hyperkalemia Acute
[2018-11-22] MEDS: CARVEDILOL 25 MG TAB PO SCH (09:39)
[2018-11-22] MEDS: SEVELAMER CARBONATE 3200 MG PO SCH ×2 (09:49→11:43)
--- NOTE | 2018-11-22 09:53 | PDMN ---
Medical Necessity Medical necessity: [facility] [place] [place] M180 UGIB, A-2 days: 88 yo w/ acute confusion and grogginess during dialysis for ESRD. Eval shows GI bleed with sig anemia H/H 5.7/16.9. GI consult, urgent EGD performed, PRBC transfused, IVF, cont tele monitoring. Meets [facility] [place] [place] IP criteria for UGIB w/ sig active comorbid disease (see hx below) and anemia w/ AMS. IP status per MD - anticipate>2MN to make sure GI bleed resolved. Hx CAD, HTN, ESRD on dialysis, PE, renal carcinoma, prostate ca , pacer
[2018-11-22 11:46] VITALS: BP 137/83
--- NOTE | 2018-11-22 12:34 | SOAPPROG ---
SOAP Progress Note Assessment/Plan: Assessment: ESRD, next HD tomorrow UGI bleed with melena and coffee-ground emesis EGD today, non bleeding gastric ulcer home when OK with others if still here tomorrow will plan on HD here, otherwise he can have HD as outpatient at usual time, no heparin for at least a week Plan: HD tomorrow, either here or at his outpatient spot continue therapies 11/22/18 12:31 Subjective: up to chair still passing melena no cp, sob nausea or vomiting energy and appetite good slept OK tired, but overall energy is fine Objective: Vital Signs Temp Pulse Resp BP Pulse Ox 36.6 C 78 18 137/83 H 98 11/22/18 11:45 11/22/18 11:45 11/22/18 11:45 11/22/18 11:45 11/22/18 11:45 Laboratory Results 11/22/18 01:30 11/22/18 01:30 11/21/18 11/22/18 11/23/18 05:59 05:59 05:59 Intake Total 370 100 Balance 370 100 PT 15.3 SEC (12.0-15.0) H 11/21/18 11:30 INR 1.26 (0.83-1.16) H 11/21/18 11:30 Physical Exam - Physical Exam General Appearance: alert, thin Neck: normal inspection Respiratory: No wheezing Cardiac/Chest: regular rate, rhythm, systolic murmur, No edema Abdomen: normal bowel sounds, non-tender, soft Extremities: other (AVF with good bruit and thrill), No swelling Neuro/Psych: alert, normal mood/affect, oriented x 3 ICD10 Worksheet Patient Problems: Problems Problem Status Onset GI bleed Acute Abdominal pain Acute Chronic renal failure Acute Hyperkalemia Acute
--- NOTE | 2018-11-22 13:38 | SOAPPROG ---
JONATHAN Progress Note Assessment/Plan: Assessment: Plan: 11/22/18 09:02 GIB--likely due to gastric ulcer, appreciate GI consult. Will return to find patient later. Will continue PPI residential. ESRD--appreciate renal consult and order anemia--follow Hgb HTN with known profound orthostatis, keep supine BP higher (160 is typical) 11/22/18 13:36 Patient seen and examined. Doing well after procedure. VSS. No SOB, CP, lightheadedness or abdominal pain. Will plan on sending home. Outpatient dialysis tomorrow. Will need to follow iron, CBC, and epo replacement carefully in conjunction with renal team Objective: Vital Signs Temp Pulse Resp BP Pulse Ox 36.6 C 78 18 137/83 H 98 11/22/18 11:45 11/22/18 11:45 11/22/18 11:45 11/22/18 11:45 11/22/18 11:45 Laboratory Results 11/22/18 01:30 11/22/18 01:30 11/21/18 11/22/18 11/23/18 05:59 05:59 05:59 Intake Total 370 100 Balance 370 100 PT 15.3 SEC (12.0-15.0) H 11/21/18 11:30 INR 1.26 (0.83-1.16) H 11/21/18 11:30 ICD10 Worksheet Patient Problems: Problems Problem Status Onset GI bleed Acute Abdominal pain Acute Chronic renal failure Acute Hyperkalemia Acute
--- NOTE | 2018-11-22 14:04 | ASMTLACE ---
LACE Length of stay for Answers: 1 day current admission Acuity / Level of Answers: Yes Care: Did the patient have an inpatient admission? Comorbidities - select Answers: Coronary Artery Disease all that apply Moderate or severe liver or renal disease # of Emergency department Answers: 1-2 visits in the last 6 months Score: 11 Date Signed: 11/22/2018 02:03 PM Electronically Signed By:HERNANDEZ Mohan
[2018-11-22] MEDS ORDERED: CINACALCET HCL 30 MG TAB PO SCH (18:00)
[2018-11-22] MEDS ORDERED: PANTOPRAZOLE SODIUM 40 MG TAB PO SCH (21:00)
--- NOTE | 2018-11-23 08:15 | ASDISCHSUM ---
Discharge Information Plan Status:Home with No Needs Medically Cleared to Leave: Discharge Date:11/22/2018 02:48 PM CM D/C Disposition: ADT D/C Disposition:Home, Routine, Self-Care Projected Discharge Date:11/22/2018 02:48 PM Transportation at D/C: Discharge Delay Reason: Follow-Up Date:11/22/2018 02:48 PM Discharge Slot: Final Diagnosis: Placement Information Patient Contact Information Contact Name:DANIEL Relationship: Address:[address] [place] [address] City:[place] Alternate Phone: State/Zip Code:[place] [address] Email: Financial Information Financial Class:Medicare Advantage Plans Primary Plan Desc:[employer] ADV Primary Plan Number:[id number] Secondary Plan Desc: Secondary Plan Number: Assessment Information LACE LACE Length of stay for Answers: 1 day current admission Acuity / Level of Answers: Yes Care: Did the patient have an inpatient admission? Comorbidities - select Answers: Coronary Artery Disease all that apply Moderate or severe liver or renal disease # of Emergency department Answers: 1-2 visits in the last 6 months Score: 11 Date Signed: 11/22/2018 02:03 PM Electronically Signed By:HERNANDEZ Mohan Case Management Discharge Plan Note Case Management Discharge Discharge Order Complete? Answers: Yes Patient to Obtain Answers: via Family Medications Transportation Arranged Answers: Family/Friends Family Notified Answers: Yes Discharge Comments Notes: Late Note from 11/22 CM discussed discharge plan with pt and his . PT/OT are recommending [facility]. At this time Pt and his say that he feels like he is at his baseline for mobility and that he doesn't feel he could benefit from HHC at this time. Pt's reports she brings pt to dialysis as scheduled as is able to help pt at home as needed. CM provided them with list of HHC providers and provided education on contacting their PCP if they want linkage. Pt reports he has had HHC in the past and "graduated" out of it. CM left message for pt's PAJuan to notify of plans. Date Signed: 11/23/2018 08:14 AM Electronically Signed By:HERNANDEZ Mohan Intervention Information
== END 2018-11-22 14:48 | disposition home or self-care (01) ==
LOC: EDUNIT# → INTOOBSV 12:02 → F1N 13:35
PROVIDERS: ADMIT Family Medicine; ATTEND Internal Medicine
PROC: 0DB98ZX Excision of Duodenum, Via Natural or Artificial Opening Endoscopic, Diagnostic (ICD-10-PCS; principal; 2018-11-21)
PROC: 0DB68ZX Excision of Stomach, Via Natural or Artificial Opening Endoscopic, Diagnostic (ICD-10-PCS; principal; 2018-11-21)
PROC: 30233N1 Transfusion of Nonautologous Red Blood Cells into Peripheral Vein, Percutaneous Approach (ICD-10-PCS; principal; 2018-11-21)
DX: K92.2 Gastrointestinal hemorrhage, unspecified (principal); K63.5 Polyp of colon; I12.0 Hypertensive chronic kidney disease with stage 5 chronic kidney disease or end stage renal disease; N18.6 End stage renal disease; E78.5 Hyperlipidemia, unspecified; I25.10 Atherosclerotic heart disease of native coronary artery without angina pectoris; D64.9 Anemia, unspecified; M10.9 Gout, unspecified; M72.0 Palmar fascial fibromatosis [Dupuytren]; E86.9 Volume depletion, unspecified; Z99.2 Dependence on renal dialysis; Z85.46 Personal history of malignant neoplasm of prostate; Z95.0 Presence of cardiac pacemaker; Z86.711 Personal history of pulmonary embolism; Z90.5 Acquired absence of kidney
CPT/HCPCS: 36430; 43239; 93005; 96360; 96361; 97161; 97165; 97535; 99285; G0378; J2001; J2704; J3010; P9016; 84484-ER; 86704-90; G0472